=== PATIENT | male | born 1950 | race Asian ===

== ENCOUNTER 2018-04-19 14:03 | Inpatient (IN) | payer MEDICARE, MEDICAID ==
--- NOTE | 2018-04-19 14:53 | ED Physician Chart ---
ED Chief Complaint/HPI - Patient Information Date Seen:: 04/19/18 Time Seen:: 14:25 Chief Complaint:: Agitation History of Present Illness:: onset x 2 days of agitation and hostile behavior; no report of trauma, H/As, S/T , neck pain, cough, C/P, SIs, SOB, Abd. Pain, A/N/V/D/C, fever, chills, or urinary s/s Allergies:: Allergies Allergy/AdvReac Type Severity Reaction Status Date / Time No Known Allergies Allergy Verified 04/19/18 14:26 Vitals:: Vital Signs - 8 hr 04/19/18 14:26 Temp 98.9 F HR 72 RR 16 BP 140/86 Historian:: Patient, EMS Review:: Nurse's Note Reviewed, Old Chart Reviewed, EMS run form Reviewed ED Review of Systems - Review of Systems General/Constitutional: No fever, No chills, No weight loss, No weakness, No diaphoresis, No edema, No loss of appetite Skin: No skin lesions, No rash, No bruising Head: No headache, No light-headedness Eyes: No loss of vision, No pain, No diplopia ENT: No earache, No nasal drainage, No sore throat, No tinnitus Neck: No neck pain, No swelling, No thyromegaly, No stiffness, No mass noted Cardio Vascular: No chest pain, No palpitations, No PND, No orthopnea, No edema Pulmonary: No SOB, No cough, No sputum, No wheezing GI: No nausea, No vomiting, No diarrhea, No pain, No melena, No hematochezia, No constipation, No hematemesis G/U: No dysuria, No frequency, No hematuria, No nacturia Musculoskeletal: No bone or joint pain, No back pain, No muscle pain Endocrine: No polyuria, No polydipsia Psychiatric: Prior psych history, Depression, Anxiety, No suicidal ideation, No homicidal ideation, No auditory hallucination, No visual hallucination Hematopoietic: No bruising, No lymphadenopathy Allergic/Immuno: No urticaria, No angioedema Neurological: No syncope, No focal symptoms, No weakness, No paresthesia, No headache, No seizure, No dizziness, No confusion, No vertigo ED Past Medical History - Past Medical History Obtainable: Yes Past Medical History: HTN, Dyslipidemia Family History: HTN Social History: Non Smoker, No Alcohol, No Drug Use, Single, Care Facility Surgical History: None Psychiatricy History: Bipolar Medication: Reviewed Family Medical History - Family Member Mother History Unknown: Yes ED Physical Exam - Physical Examination General/Constitutional: Awake, Well-developed, well-nourished, Alert, No distress, GCS 15, Non-toxic appearing, Ambulatory Head: Atraumatic Eyes: Lids, conjuctiva normal, PERRL, EOMI Skin: Nl inspection, No rash, No skin lesions, No ecchymosis, Well hydrated, No lymphadenopathy ENMT: External ears, nose nl, TM canals nl, Nasal exam nl, Lips, teeth, gums nl , Oropharynx nl, Tonsils nl Neck: Nontender, Full ROM w/o pain, No JVD, No nuchal rigidity, No bruit, No mass, No stridor Respiratory: Nl effort/Exclusion, Clear to Auscultation, No Wheeze/Rhonchi/Rales Cardio Vascular: RRR, No murmur, gallop, rubs, NL S1 S2, Carotid/Femoral/Distal pulses equal bilaterally GI: No tenderness/rebounding/guarding, No organomegaly, No hernia, Normal BS's, Nondistended, No mass/bruits, No McBurney tenderness : No CVA tenderness Extremities: No tenderness or effusion, Full ROM, normal strength in all extremities, No edema, Normal digits & nails Neuro/Psych: Alert/oriented, DTR's symmetric, Normal sensory exam, Normal motor strength, Judgement/insight normal, Mood normal, Normal gait, No focal deficits Other Neuro/Psych comments:: + Psychomotor Agitation; no SIs; Mood/Affect: Labile Misc: Normal back, No paraspinal tenderness ED Labs/Radiology/EKG Results - Lab Results Comments:: Reviewed - EKG Interpretations EKG Time:: 14:57 Rate & Rhythm: 69; NSR Comments:: non-specific st-t changes ED Septic Shock - . Is Septic Shock (SBP<90, OR Lactate>4 mmol\L) present?: No - <6hrs of presentation: Vital Signs: Vital Signs - 8 hr 04/19/18 14:26 Temp 98.9 F HR 72 RR 16 BP 140/86 ED Reassessment (Disposition) - Reassessment Reassessment Condition:: Improved - Diagnosis Diagnosis:: Agitation; Psychosis; Medical Clearance; Hyperglycemia; DM; Bipolar Disorder - Aftercare/Follow up Instructions Aftercare/Follow-Up Instructions:: Counseled pt regarding lab results/diagnosis & need follow up, Counseled pt & family regarding lab results/diagnosis & need follow up - Patient Disposition Discharge/Transfer:: Acute Care w/in this hosp Admitted to:: [facility] Condition at Disposition:: Stable, Improved
[2018-04-19 15:45] LABS: % EOSINOPHILS 8.4 % (0.0-5.0); % LYMPHOCYTES 19.3 % (20.0-50.0); % MONOCYTES 7.5 % (2.0-10.0); % NEUTROPHILS 63.8 % (40.0-80.0); BASOPHILE ABSOLUTE 0.1 Th/cumm (0-0.2); EOSINOPHILE ABSOLUTE 0.4 Th/cmm (0.1-0.4); HEMATOCRIT 42.8 % (41.0-60); HEMOGLOBIN 14.2 gm/dL (12-16); MEAN CELL VOLUME 87.4 fl (80-99); MEAN CORPUSCULAR HEMOGLOBIN 28.9 pg (27.0-31.0); MEAN CORPUSCULAR HGB CONC 33.1 pg (28.0-36.0); MEAN PLATELET VOLUME 6.6 fl; MONOCYTE ABSOLUTE 0.4 Th/cmm (0.3-1.0); NEUTROPHILE ABSOLUTE 3.2 Th/cmm (1.8-8.0); PLATELET COUNT 253 Th/cmm (150-400); RED CELL DISTRIBUTION WIDTH 12.3 % (11.5-20.0); WHITE BLOOD COUNT 5.1 Th/cmm (4.8-10.8)
[2018-04-19 16:05] LABS: ACETAMINOPHEN < 10.0 ug/mL (10.0-30.0); ALB/GLOB RATIO 1.3 (1.0-1.8); ALBUMIN 4.4 gm/dL (4.2-5.5); ALKALINE PHOSPHATASE 57 U/L (34-104); ANION GAP 10.7 (7.0-16.0); BILIRUBIN,TOTAL 0.4 mg/dL (0.3-1.0); BUN - UREA NITROGEN 18 mg/dL (7-25); CALCIUM SERUM 9.9 mg/dL (8.6-10.3); CARBON DIOXIDE 28.5 mEq/L (21.0-31.0); CHLORIDE 100 mEq/L (98-107); CHOLESTEROL 207 mg/dL (<200); GFR AFRICAN-AMERICAN > 60.0 ml/min (>90); GFR NON AFRICAN-AMERICAN > 60.0 ml/min; GLUCOSE 225 mg/dL (70-105); HDL -HIGH DENSITY LIPOPROTEIN 46 mg/dL (23-92); POTASSIUM SERUM 4.2 mEq/L (3.5-5.1); SGOT 9 U/L (13-39); SGPT/ALT 3 U/L (7-52); SODIUM SERUM 135 mEq/L (136-145); TOTAL PROTEIN,SERUM 7.8 gm/dL (6.0-8.3); TRIGLYCERIDES 147 mg/dL (<150)
[2018-04-19 16:08] LABS: SALICYLATES (ASPIRIN) < 25.0 mg/L (30.0-100.0)
[2018-04-19 16:41] LABS: URINE SOURCE CLEAN C
[2018-04-19 16:46] LABS: URINE BILIRUBIN NEGATIVE (NEGATIVE); URINE BLOOD NEGATIVE (NEGATIVE); URINE GLUCOSE (UA) >=1000 mg/dL (NEGATIVE); URINE KETONE TRACE mg/dL (NEGATIVE); URINE LEUKOCYTE ESTERASE NEGATIVE (NEGATIVE); URINE MICROSCOPIC INDICATED? YES; URINE NITRATE NEGATIVE (NEGATIVE); URINE PH 6.5 (4.6 - 8.0); URINE PROTEIN TRACE mg/dL (NEGATIVE); URINE UROBILINOGEN 0.2 E.U./dL (0.2 - 1.0)
[2018-04-19 16:56] LABS: URINE CLARITY CLEAR (CLEAR); URINE COLOR YELLOW
[2018-04-19 16:57] LABS: URINE BACTERIA OCCASIONAL /hpf (NONE SEEN); URINE EPITHELIAL CELLS FEW /lpf (FEW); URINE RBC NONE SEEN /hpf (0-5); URINE WBC 0-2 /hpf (0-5)
[2018-04-19 17:06] LABS: AMPHETAMINE URINE NEGATIVE (NEGATIVE); BARBITURATES URINE NEGATIVE (NEGATIVE); BENZODIAZEPINES QUAL URINE NEGATIVE (NEGATIVE); CANNABINOID THC NEGATIVE (NEGATIVE); COCAINE METABOLITE QUAL URINE NEGATIVE (NEGATIVE); METHADONE URINE NEGATIVE (NEGATIVE); METHAMPHETAMINES QUAL URINE NEGATIVE (NEGATIVE); OPIATES (MORPHINE) QUAL. URINE NEGATIVE (NEGATIVE); PHENCYCLIDINE (PCP) URINE NEGATIVE (NEGATIVE); TRICYCLICS (TCA) QUAL. URINE NEGATIVE (NEGATIVE)
[2018-04-19 17:46] VITALS: BP 169/85
[2018-04-19 19:30] LABS: CHOLESTEROL 208 mg/dL (<200); HDL -HIGH DENSITY LIPOPROTEIN 46 mg/dL (23-92); TRIGLYCERIDES 147 mg/dL (<150)
[2018-04-19] MEDS ORDERED: Magnesium Hydroxide (MOM) 30 mL UDC PO PRN (19:47)
[2018-04-19] MEDS ORDERED: Maalox 30 mL Cup PO PRN (19:47)
[2018-04-19] MEDS ORDERED: Non-Formulary Item 1 EA (Glucagon,Human Recombinant [Glucagon Emergency Kit] 1 MG) IJ PRN (19:51)
[2018-04-19] MEDS ORDERED: Fleet Enema 135 mL RC PRN (19:51)
[2018-04-19] MEDS ORDERED: INSULIN HUMAN REGULAR 100 UNITS/ML UNIT SUBQ SCH (21:00)
[2018-04-19] MEDS: Guaifenesin DM 10 ML UDC PO PRN (21:54)
[2018-04-19] MEDS: Oxybutynin Chloride 5 mg ER Tab PO SCH (22:30)
[2018-04-20] MEDS: INSULIN ASPART SLIDING SCALE 100 UNITS/ML UNIT SUBQ SCH ×4 (06:33→21:20)
[2018-04-20] MEDS ORDERED: Magnesium Hydroxide (MOM) 30 mL UDC PO PRN (08:10)
[2018-04-20] MEDS ORDERED: Non-Formulary Item 1 EA (Acetaminophen [Pain Reliever] 650 MG) PO PRN ×2 (08:10)
[2018-04-20] MEDS ORDERED: RASAGILINE MESYLATE 1 MG PO SCH (09:00)
[2018-04-20] MEDS ORDERED: PIMAVANSERIN TARTRATE 17 MG PO SCH (09:00)
[2018-04-20] MEDS ORDERED: DORZOLAMIDE HCL EACH EYE SCH (09:00)
[2018-04-20] MEDS ORDERED: Non-Formulary Item 1 EA (Potassium Chloride [Potassium Chloride] 1 CAP) PO SCH (09:00)
[2018-04-20] MEDS: Multivitamin Tab PO SCH (09:16)
[2018-04-20] MEDS: Guaifenesin DM 10 ML UDC PO PRN ×2 (09:30→17:55)
[2018-04-20] MEDS: Non-Formulary Item 1 EA (Linaclotide [Linzess] 145 MCG) PO SCH ×2 (09:51→17:10)
--- NOTE | 2018-04-20 10:49 | History & Physical ---
ADMIT DATE: HISTORY OF PRESENT ILLNESS: The patient came with history of severe agitation, was admitted for [facility]. The patient has no history of shortness of breath, chest pain, etc. SYSTEM REVIEW: Otherwise negative. PAST MEDICAL HISTORY: The patient had a past history of hypertension, hyperlipidemia and psychiatric history of bipolar disorder. PHYSICAL EXAMINATION: GENERAL: The patient is well-developed and well-nourished, very agitated. HEAD: Normal. ENT: Normal. NECK: Supple, nontender. LUNGS: Clear. CARDIOVASCULAR SYSTEM: S1 and S2 heard. ABDOMEN: Soft. Bowel sounds are heard. CENTRAL NERVOUS SYSTEM: The patient has psychomotor agitation. LABORATORY DATA AND DIAGNOSTIC STUDIES: EKG was normal sinus rhythm. Labs are normal. DIAGNOSES: Severe agitation, psychosis, hyperglycemia, history of diabetes, history of bipolar disorder, history of hypertension was made. PLAN: I will follow along with Dr. Mccall and I will manage medical condition and I will follow along with him. JOB# [id number]
[2018-04-20] MEDS: Oxybutynin Chloride 5 mg ER Tab PO SCH (21:18)
--- NOTE | 2018-04-21 00:03 | Psychiatric Evaluation ---
DATE OF SERVICE: PSYCHIATRIC INITIAL EVALUATION AND MENTAL STATUS EXAM PATIENT'S AGE: 67-year-old. SEX: Male. PHYSICIAN: Dr. Lees. CHIEF COMPLAINT: Agitation and irritability. HISTORY OF PRESENT ILLNESS: The patient is a 67-year-old male who was admitted to the hospital because of increased confusion and paranoia and agitated. The patient has been pacing up and down the unit in [facility] and has not been able to follow any directions. The patient also has been easily agitated. Also, has been having severe mood swings. The patient also has been restless and has been actively responding to stimuli. During interview, the patient seems to be preoccupied. He was not able to answer most of my questions coherently and the patient seems to be forgetful. PAST PSYCHIATRIC HISTORY: The patient has history of dementia according to the hold. PAST MEDICAL HISTORY: The patient has hypertension, diabetes mellitus, and Parkinson's disease. He has history of depression and dyslipidemia. SOCIAL HISTORY: The patient lives in [facility]. No known alcohol or drug use. ALLERGIES: No known allergies. MENTAL STATUS EXAMINATION: The patient appears slightly older than his stated age. Anxious. Confused. Preoccupied. Thought processes are with poverty of speech. The patient did not answer questions regarding hallucinations or delusions, but he was rambling and preoccupied and actively responding. The patient did not answer question regarding suicide or homicide. The patient is alert and oriented to the situation, but not to the place or person. Impaired immediate and recent memory, but intact remote memories. Poor insight and poor judgment. ASSESSMENT: PRIMARY DIAGNOSIS: Unspecified psychosis. MEDICAL DIAGNOSES: Hypertension, diabetes mellitus, and Parkinson's disease. SECONDARY DIAGNOSIS: Dementia, moderate. TREATMENT PLAN: We will monitor the patient's condition closely. We will start individual as well as milieu psychotherapy. We will continue Depakote and Remeron and will adjust the dose. ESTIMATED LENGTH OF STAY: 5-7 days. THE PATIENT'S STRENGTHS AND WEAKNESSES: The patient's strength is not clear at this time. Weaknesses are poor impulse control and his confusion and agitation. AFTER DISCHARGE PLAN: The patient will return to [facility] and outpatient treatment and followup will continue there. CRITERIA FOR DISCHARGE: The patient will not be psychotic and will have better impulse control and stabilize psychotropic medications. JOB# [id number]
[2018-04-21] MEDS: INSULIN ASPART SLIDING SCALE 100 UNITS/ML UNIT SUBQ SCH ×4 (06:37→21:01)
[2018-04-21] MEDS: Multivitamin Tab PO SCH (09:03)
[2018-04-21] MEDS: Potassium Chloride 10 mEq ER Tab PO SCH (09:04)
[2018-04-21] MEDS: Guaifenesin DM 10 ML UDC PO PRN (09:38)
--- NOTE | 2018-04-21 14:12 | Internal Medicine Prog Note ---
Internal Medicine Subjective - Subjective Patient seen and examined:: chart reviewed Patient is:: verbal Patient Complaints of:: SOB Per staff patient has:: no adverse event, tolerating meds Internal Medicine Objective - Results Result Diagrams: 04/19/18 15:15 04/19/18 15:15 Recent Labs: Laboratory Last Values WBC 5.1 Th/cmm (4.8-10.8) 04/19/18 15:15 RBC 4.90 Mil/cmm (3.80-5.80) 04/19/18 15:15 Hgb 14.2 gm/dL (12-16) 04/19/18 15:15 Hct 42.8 % (41.0-60) 04/19/18 15:15 MCV 87.4 fl (80-99) 04/19/18 15:15 MCH 28.9 pg (27.0-31.0) 04/19/18 15:15 MCHC Differential 33.1 pg (28.0-36.0) 04/19/18 15:15 RDW 12.3 % (11.5-20.0) 04/19/18 15:15 Plt Count 253 Th/cmm (150-400) 04/19/18 15:15 MPV 6.6 fl 04/19/18 15:15 Neutrophils % 63.8 % (40.0-80.0) 04/19/18 15:15 Lymphocytes % 19.3 % (20.0-50.0) L 04/19/18 15:15 Monocytes % 7.5 % (2.0-10.0) 04/19/18 15:15 Eosinophils % 8.4 % (0.0-5.0) H 04/19/18 15:15 Basophils % 1.0 % (0.0-2.0) 04/19/18 15:15 Sodium 135 mEq/L (136-145) L 04/19/18 15:15 Potassium 4.2 mEq/L (3.5-5.1) 04/19/18 15:15 Chloride 100 mEq/L (98-107) 04/19/18 15:15 Carbon Dioxide 28.5 mEq/L (21.0-31.0) 04/19/18 15:15 Anion Gap 10.7 (7.0-16.0) 04/19/18 15:15 BUN 18 mg/dL (7-25) 04/19/18 15:15 Creatinine 1.0 mg/dL (0.7-1.3) 04/19/18 15:15 Est GFR ( Amer) > 60.0 ml/min (>90) 04/19/18 15:15 Est GFR (Non-Af Amer) > 60.0 ml/min 04/19/18 15:15 BUN/Creatinine Ratio 18.0 04/19/18 15:15 Glucose 225 mg/dL (70-105) H 04/19/18 15:15 POC Glucose 275 MG/DL (70 - 105) H 04/21/18 11:56 Calcium 9.9 mg/dL (8.6-10.3) 04/19/18 15:15 Total Bilirubin 0.4 mg/dL (0.3-1.0) 04/19/18 15:15 AST 9 U/L (13-39) L 04/19/18 15:15 ALT 3 U/L (7-52) L 04/19/18 15:15 Alkaline Phosphatase 57 U/L (34-104) 04/19/18 15:15 Troponin I < 0.01 ng/mL (0.01-0.05) L 04/19/18 15:15 Total Protein 7.8 gm/dL (6.0-8.3) 04/19/18 15:15 Albumin 4.4 gm/dL (4.2-5.5) 04/19/18 15:15 Globulin 3.4 gm/dL 04/19/18 15:15 Albumin/Globulin Ratio 1.3 (1.0-1.8) 04/19/18 15:15 Triglycerides 147 mg/dL (<150) 04/19/18 15:15 Cholesterol 208 mg/dL (<200) H 04/19/18 15:15 LDL Cholesterol Direct 141 mg/dL (75-193) 04/19/18 15:15 HDL Cholesterol 46 mg/dL (23-92) 04/19/18 15:15 TSH 1.25 uIU/ml (0.34-5.60) 04/19/18 15:15 Urine Source CLEAN C 04/19/18 15:28 Urine Color YELLOW 04/19/18 15:28 Urine Clarity CLEAR (CLEAR) 04/19/18 15:28 Urine pH 6.5 (4.6 - 8.0) 04/19/18 15: Ur Specific [place] 1.020 (1.005-1.030) 04/19/18 15: Urine Protein TRACE mg/dL (NEGATIVE) 04/19/18 15: Urine Glucose (UA) >=1000 mg/dL (NEGATIVE) H 04/19/18 15: Urine Ketones TRACE mg/dL (NEGATIVE) 04/19/18 15: Urine Blood NEGATIVE (NEGATIVE) 04/19/18 15: Urine Nitrate NEGATIVE (NEGATIVE) 04/19/18 15: Urine Bilirubin NEGATIVE (NEGATIVE) 04/19/18 15: Urine Urobilinogen 0.2 E.U./dL (0.2 - 1.0) 04/19/18 15: Ur Leukocyte Esterase NEGATIVE (NEGATIVE) 04/19/18 15: Urine RBC NONE SEEN /hpf (0-5) 04/19/18: Urine WBC 0-2 /hpf (0-5) 04/19/18 15: Ur Epithelial Cells FEW /lpf (FEW) 04/19/18 15: Urine Bacteria OCCASIONAL /hpf (NONE SEEN) 04/19/18 15: Salicylates < 25.0 mg/L (30.0-100.0) L 04/19/18 15:15 Urine Opiates Screen NEGATIVE (NEGATIVE) 04/19/18 15: Urine Methadone Screen NEGATIVE (NEGATIVE) 04/19/18 15: Acetaminophen < 10.0 ug/mL (10.0-30.0) L 04/19/18 15: Ur Barbiturates Screen NEGATIVE (NEGATIVE) 04/19/18 15: Valproic Acid 59.6 ug/mL (50.0-100.0) 04/19/18 15: Ur Tricyclics Screen NEGATIVE (NEGATIVE) 04/19/18 15: Ur Phencyclidine Scrn NEGATIVE (NEGATIVE) 04/19/18 15: Amphetamines Screen NEGATIVE (NEGATIVE) 04/19/18 15:28 U Methamphetamines Scrn NEGATIVE (NEGATIVE) 04/19/18 15:28 U Benzodiazepines Scrn NEGATIVE (NEGATIVE) 04/19/18 15: U Cocaine Metab Screen NEGATIVE (NEGATIVE) 04/19/18 15:28 U Cannabinoids Screen NEGATIVE (NEGATIVE) 04/19/18 15:28 Ethyl Alcohol < 10 mg/dL (0-10) 04/19/18 15:15 - Physical Exam Vitals and I&O: Vital Signs Temp 97.9 F 04/21/18 06:53 Pulse 75 04/21/18 09:05 Resp 16 04/21/18 10:28 BP 156/80 04/21/18 09:05 Pulse Ox 97 04/21/18 06:53 Intake & Output 04/20/18 04/21/18 04/21/18 18:59 06:59 18:59 Intake Total 1720 120 Balance 1720 120 Intake: Oral 1720 120 Other: # Voids 4 3 # Bowel Movements 1 Active Medications: Current Medications Acetaminophen (Tylenol) 650 mg PO Q4HR PRN PRN Reason: Mild Pain / Temp above 100 Stop: 06/18/18 19:46 Last Admin: 04/20/18 17:55 Dose: 650 mg Al Hydrox/Mg Hydrox/Simethicone (Maalox) 30 ml PO Q4HR PRN PRN Reason: GI DISTRESS Stop: 06/18/18 19:46 Bisacodyl (Dulcolax 10 Mg Supp) 10 mg RC DAILY PRN PRN Reason: Constipation Stop: 06/18/18 19:50 Brimonidine Tartrate (Alphagan 0.15% [facility]) 1 drop EACH EYE TID [facility] Stop: 06/18/18 20:59 Last Admin: 04/21/18 09:39 Dose: 1 drop Calcium Carbonate (Tums) 500 mg PO Q6H PRN PRN Reason: Indigestion Stop: 06/18/18 19:50 Carbidopa/Levodopa (Sinemet 25mg-100 Mg) 1 tab PO HS [facility] Stop: 06/18/18 20:59 Last Admin: 04/20/18 21:19 Dose: 1 tab Carbidopa/Levodopa (Sinemet 25mg-100 Mg) 2 tab PO TIDWM [facility] Stop: 06/19/18 07:59 Last Admin: 04/21/18 12:39 Dose: 2 tab Carvedilol (Coreg) 12.5 mg PO DAILY [facility] Stop: 06/19/18 08:59 Last Admin: 04/21/18 09:04 Dose: 12.5 mg Clopidogrel Bisulfate (Plavix) 75 mg PO DAILY [facility] Stop: 06/19/18 08:59 Last Admin: 04/21/18 09:02 Dose: 75 mg Dextrose (Glutose 40%) 37.5 gm PO PRN PRN PRN Reason: bs<70 Stop: 06/18/18 19:50 Divalproex Sodium (Depakote Dr) 500 mg PO BID [facility]; Protocol Stop: 06/19/18 08:59 Last Admin: 04/21/18 09:02 Dose: 500 mg Docusate Sodium (Colace) 250 mg PO BID [facility] Stop: 06/19/18 08:59 Last Admin: 04/21/18 09:02 Dose: 250 mg Dorzolamide HCl (Trusopt 2% Oph Soln) 1 drop EACH EYE BID [facility] Stop: 06/19/18 16:59 Last Admin: 04/21/18 09:38 Dose: 1 drop Entacapone (Comtan) 200 mg PO TID [facility] Stop: 06/18/18 20:59 Last Admin: 04/21/18 09:02 Dose: 200 mg Guaifenesin/Dextromethorphan (Robitussin Dm) 10 ml PO Q6HR PRN PRN Reason: Cough Stop: 06/18/18 20:11 Last Admin: 04/21/18 09:38 Dose: 10 ml Insulin Aspart (Novolog Insulin Sliding Scale) 0 units SUBQ ACHS [facility]; Protocol Stop: 06/19/18 07:29 Last Admin: 04/21/18 11:58 Dose: 6 units Isosorbide Dinitrate (Isordil) 5 mg PO DAILY [facility] Stop: 06/19/18 08:59 Last Admin: 04/21/18 09:05 Dose: 5 mg Lorazepam (Ativan) 0.5 mg PO Q4HR PRN; Protocol PRN Reason: Anxiety Stop: 05/19/18 19:46 Magnesium Hydroxide (Milk Of Magnesia) 30 ml PO HS PRN PRN Reason: Constipation Magnesium Oxide (Mag-Oxide) 400 mg PO BID [facility] Stop: 06/19/18 08:59 Last Admin: 04/21/18 09:03 Dose: 400 mg Mirtazapine (Remeron) 7.5 mg PO HS [facility] Stop: 06/18/18 22:14 Last Admin: 04/20/18 21:17 Dose: 7.5 mg Miscellaneous (Linaclotide [Linzess]) 145 mcg PO BID [facility] Stop: 06/19/18 08:59 Last Admin: 04/20/18 17:10 Dose: Not Given Miscellaneous (Pimavanserin Tartrate [Nuplazid]) 17 mg PO DAILY [facility] Stop: 06/19/18 08:59 Last Admin: 04/20/18 09:51 Dose: Not Given Miscellaneous (Rasagiline Mesylate [Azilect]) 1 mg PO DAILY [facility] Stop: 06/19/18 08:59 Last Admin: 04/20/18 09:51 Dose: Not Given Multivitamins/Vitamin C (Theragran) 1 tab PO DAILY [facility] Stop: 06/19/18 08:59 Last Admin: 04/21/18 09:03 Dose: 1 tab Mupirocin (Bactroban Oint) 1 appl NS BID [facility] Stop: 04/26/18 09:01 Oxybutynin Chloride (Ditropan Xl) 10 mg PO HS [facility] Stop: 06/18/18 22:14 Last Admin: 04/20/18 21:18 Dose: 10 mg Pioglitazone HCl (Actos) 15 mg PO DAILY [facility] Stop: 06/19/18 08:59 Last Admin: 04/21/18 09:02 Dose: 15 mg Potassium Chloride (Klor-Con) 10 meq PO DAILY [facility] Stop: 06/20/18 08:59 Last Admin: 04/21/18 09:04 Dose: 10 meq Quetiapine Fumarate (Seroquel) 12.5 mg PO HS [facility]; Protocol Stop: 06/19/18 20:59 Last Admin: 04/20/18 21:14 Dose: 12.5 mg Sodium Phosphate (Fleet Enema) 135 ml RC DAILY PRN PRN Reason: Constipation Stop: 06/18/18 19:50 Tramadol HCl (Ultram) 50 mg PO HS PRN PRN Reason: Pain (Severe) Stop: 06/18/18 19:50 Zolpidem Tartrate (Ambien) 5 mg PO HS PRN PRN Reason: Insomnia Stop: 06/18/18 19:46 Last Admin: 04/19/18 21:53 Dose: 5 mg General: alert, other (anxious) HEENT: NC/AT Neck: Supple Lungs: CTAB Cardiovascular: Normal S1, Normal S2 Abdomen: non-tender Extremities: clear, edema Neurological: no change Internal Medicine Assmt/Plan - Assessment Assessment: severe agitation psychosis hyperglycemia h/o dm h/o bipolar disease h/o htn - Plan Plan: as per psych will monitor Nutritional Asmnt/Malnutr-PDOC - Dietary Evaluation Malnutrition Findings (Please click <Entered> for more info): Nutritional Asmnt/Malnutrition Start: 04/20/18 15: 00 Text: Status: Complete Freq: Protocol: Document 04/20/18 15:00 TIM (Rec: 04/20/18 15:32 TIM CAST) Nutritional Asmnt/Malnutrition Patient General Information Nutritional Screening High Risk Diagnosis psychosis Pertinent Medical Hx/Surgical Hx HTN, hyperlipidemia, bipolar disorder, DM Subjective Information Glucose 225 at admission noted . Pt sitting in hallway at time of visit. Pt's alert, but appears confused. Pt states he has no diet/meal preferences. Per EMR, pt finished 50% of dinner last night after admission. Pt does not appear ready for diabetic education. Current Diet Order/ Nutrition Support CCHO 60 gm Pertinent Medications maalox, dulcolax, tums, dextrose, colace, novolog, MOM , mag-oxide, remeron, theragran, actos, klor-con, seroquel Pertinent Labs 04/20: POC 157-243 04/19: POC 239, glucose 225, POC 239, cholesterol 207-208, Na 135 Nutritional Hx/Data Height 1.73 m Height (Calculated Centimeters) 172.7 Current Weight (lbs) 72.575 kg Weight (Calculated Kilograms) 72.6 Weight (Calculated Grams) 93079.8 [place] Body Weight 154 lb Body Mass Index (BMI) 24.3 Weight Status Approriate GI Symptoms GI Symptoms None Last BM none noted Difficult in: None Food Allergies No Skin Integrity/Comment: dryness, duc 20 Estimated Nutritional Goals BEE in Kcals: Using Current wt Calories/Kcals/Kg 25-30 Kcals Calculated [id number] Protein: Using Current wt Protein g/k.0 Protein Calculated 73 g Fluid: ml 4399-5201 (1 ml/kcal) Nutritional Problem 1. Problem Problem Altered nutrition related lab values Etiology hyperglycemia, endocrine dysfunction Signs/Symptoms: glucose 225, POC 157-243 Malnutrition Alert Is there a minimum of two criteria No selected? Query Text:Check all the applicable criteria. A minimum of two criteria are recommended for diagnosis of either severe or non-severe malnutrition. Malnutrition Related to Morbid Obesity Malnutrition related to morbid obesity No Intervention/Recommendation Comments 1. Continue with [facility] 60 gm diet as ordered. Will attempt to provide education at follow -up visit 2. Monitor PO intake, wt, labs and skin integrity 3. F/U as moderate risk in 3-5 days, 04/23-04/25 Expected Outcomes/Goals Expected Outcomes/Goals 1. PO intake to meet at least 75% of all meals 2. Wt stability, skin to remain intact, labs to approach normal limits Reviewed by Leny Shi RD
[2018-04-21] MEDS: Oxybutynin Chloride 5 mg ER Tab PO SCH (21:01)
[2018-04-22] MEDS: INSULIN ASPART SLIDING SCALE 100 UNITS/ML UNIT SUBQ SCH ×4 (06:35→20:52)
[2018-04-22] MEDS: Multivitamin Tab PO SCH (08:10)
[2018-04-22] MEDS: Potassium Chloride 10 mEq ER Tab PO SCH (08:19)
[2018-04-22] MEDS: Guaifenesin DM 10 ML UDC PO PRN (11:52)
--- NOTE | 2018-04-22 16:18 | Progress Notes ---
DATE: 04/22/2018 SUBJECTIVE: The patient was seen in his room. The patient is awake and alert, but forgetful, episodes of agitation appears to be guarded and easily gets frustrated. Otherwise, the patient appears to be in no acute distress. OBJECTIVE: VITAL SIGNS: Temperature 98.5, heart rate 73, blood pressure 151/82, respirations 20, and 98% on room air. HEENT: Head is atraumatic and normocephalic. Eyes: Bilateral conjunctivae are clear. Bilateral pupils equal, round, and reactive. NECK: Supple. No JVD. CARDIOVASCULAR: S1 and S2, without murmur. PULMONARY: Clear to auscultation. GASTROINTESTINAL: Soft and nontender without guarding. Positive bowel sounds. MUSCULOSKELETAL: No clubbing. No cyanosis noted. ASSESSMENT: 1. Psychosis. 2. Glaucoma. 3. Parkinson's disease. 4. Hypertension. 5. Coronary artery disease. 6. Diabetes. 7. Overactive bladder. 8. Osteoarthritis. PLAN: We will keep the patient inpatient to the Psychiatric Unit. We will follow up with the psychiatrist to monitor the patient's condition and behavior. Treatment plans were discussed with the patient's nurse. Treatment plans were discussed with Dr. Beard. JOB# [id number]
--- NOTE | 2018-04-22 19:11 | Progress Notes ---
DATE: 04/21/2018 SUBJECTIVE: Chart reviewed and the patient interviewed. Also, discussed the patient's condition with the staff and reviewed records and labs. The patient is still anxious and restless and he is still easily agitated. The patient also wants to go to [facility] where he came from, but at the same time, he is minimizing the fact that he was agitated and irritable there. I informed the patient that they will take him back when he is calmer. At the same time, the patient is restless and he is still in irritable mood and very anxious and need redirections. ASSESSMENT: The patient is still agitated. TREATMENT PLAN: Continue monitoring his behavior and his condition and continue adjusting psychotropic medications and follow up. [facility]# [id number]
[2018-04-22] MEDS: Oxybutynin Chloride 5 mg ER Tab PO SCH (20:51)
--- NOTE | 2018-04-23 03:31 | Progress Notes ---
DATE: 04/22/[address] Lees. IDENTIFYING DATA: A 67-year-old male brought in here for increased confusion, paranoia and agitation. Today on [id number] evaluation, the patient is in his room, refusing to be interviewed, when attempting to validate his emotions become more irritable and easily agitated. MEDICATIONS: Reviewed and include calcium, carbidopa/levodopa, Coreg, Plavix, Depakote 500 p.o. b.i.d., mirtazapine 7.5 mg at nighttime. ASSESSMENT AND PLAN: The patient is a 67-year-old male with a history of unspecified mood disorder, ____, disengaged in the interview, unable to engage in linear conversation. We will continue monitoring and evaluating, target the patient's ongoing severe symptoms. JOB# [id number]
[2018-04-23] MEDS: INSULIN ASPART SLIDING SCALE 100 UNITS/ML UNIT SUBQ SCH ×4 (06:34→20:54)
[2018-04-23] MEDS: Multivitamin Tab PO SCH (09:58)
[2018-04-23] MEDS: Potassium Chloride 10 mEq ER Tab PO SCH (09:59)
--- NOTE | 2018-04-23 11:24 | Internal Medicine Prog Note ---
Internal Medicine Subjective - Subjective Patient seen and examined:: chart reviewed Patient is:: verbal, other (confused, irritable ) Patient Complaints of:: SOB Per staff patient has:: no adverse event, tolerating meds Internal Medicine Objective - Results Result Diagrams: 04/19/18 15:15 04/19/18 15:15 Recent Labs: Laboratory Last Values WBC 5.1 Th/cmm (4.8-10.8) 04/19/18 15:15 RBC 4.90 Mil/cmm (3.80-5.80) 04/19/18 15:15 Hgb 14.2 gm/dL (12-16) 04/19/18 15:15 Hct 42.8 % (41.0-60) 04/19/18 15:15 MCV 87.4 fl (80-99) 04/19/18 15:15 MCH 28.9 pg (27.0-31.0) 04/19/18 15:15 MCHC Differential 33.1 pg (28.0-36.0) 04/19/18 15:15 RDW 12.3 % (11.5-20.0) 04/19/18 15:15 Plt Count 253 Th/cmm (150-400) 04/19/18 15:15 MPV 6.6 fl 04/19/18 15:15 Neutrophils % 63.8 % (40.0-80.0) 04/19/18 15:15 Lymphocytes % 19.3 % (20.0-50.0) L 04/19/18 15:15 Monocytes % 7.5 % (2.0-10.0) 04/19/18 15:15 Eosinophils % 8.4 % (0.0-5.0) H 04/19/18 15:15 Basophils % 1.0 % (0.0-2.0) 04/19/18 15:15 Sodium 135 mEq/L (136-145) L 04/19/18 15:15 Potassium 4.2 mEq/L (3.5-5.1) 04/19/18 15:15 Chloride 100 mEq/L (98-107) 04/19/18 15:15 Carbon Dioxide 28.5 mEq/L (21.0-31.0) 04/19/18 15:15 Anion Gap 10.7 (7.0-16.0) 04/19/18 15:15 BUN 18 mg/dL (7-25) 04/19/18 15:15 Creatinine 1.0 mg/dL (0.7-1.3) 04/19/18 15:15 Est GFR ( Amer) > 60.0 ml/min (>90) 04/19/18 15:15 Est GFR (Non-Af Amer) > 60.0 ml/min 04/19/18 15:15 BUN/Creatinine Ratio 18.0 04/19/18 15:15 Glucose 225 mg/dL (70-105) H 04/19/18 15:15 POC Glucose 120 MG/DL (70 - 105) H 04/23/18 05:58 Calcium 9.9 mg/dL (8.6-10.3) 04/19/18 15:15 Total Bilirubin 0.4 mg/dL (0.3-1.0) 04/19/18 15:15 AST 9 U/L (13-39) L 04/19/18 15:15 ALT 3 U/L (7-52) L 04/19/18 15:15 Alkaline Phosphatase 57 U/L (34-104) 04/19/18 15:15 Troponin I < 0.01 ng/mL (0.01-0.05) L 04/19/18 15:15 Total Protein 7.8 gm/dL (6.0-8.3) 04/19/18 15:15 Albumin 4.4 gm/dL (4.2-5.5) 04/19/18 15:15 Globulin 3.4 gm/dL 04/19/18 15:15 Albumin/Globulin Ratio 1.3 (1.0-1.8) 04/19/18 15:15 Triglycerides 147 mg/dL (<150) 04/19/18 15:15 Cholesterol 208 mg/dL (<200) H 04/19/18 15:15 LDL Cholesterol Direct 141 mg/dL (75-193) 04/19/18 15:15 HDL Cholesterol 46 mg/dL (23-92) 04/19/18 15:15 TSH 1.25 uIU/ml (0.34-5.60) 04/19/18 15:15 Urine Source CLEAN C 04/19/18 15:28 Urine Color YELLOW 04/19/18 15:28 Urine Clarity CLEAR (CLEAR) 04/19/18 15:28 Urine pH 6.5 (4.6 - 8.0) 04/19/18 15:28 Ur Specific [place] 1.020 (1.005-1.030) 04/19/18 15:28 Urine Protein TRACE mg/dL (NEGATIVE) 04/19/18 15:28 Urine Glucose (UA) >=1000 mg/dL (NEGATIVE) H 04/19/18 15:28 Urine Ketones TRACE mg/dL (NEGATIVE) 04/19/18 15:28 Urine Blood NEGATIVE (NEGATIVE) 04/19/18 15:28 Urine Nitrate NEGATIVE (NEGATIVE) 04/19/18 15:28 Urine Bilirubin NEGATIVE (NEGATIVE) 04/19/18 15:28 Urine Urobilinogen 0.2 E.U./dL (0.2 - 1.0) 04/19/18 15:28 Ur Leukocyte Esterase NEGATIVE (NEGATIVE) 04/19/18 15:28 Urine RBC NONE SEEN /hpf (0-5) 04/19/18 15:28 Urine WBC 0-2 /hpf (0-5) 04/19/18 15:28 Ur Epithelial Cells FEW /lpf (FEW) 04/19/18 15:28 Urine Bacteria OCCASIONAL /hpf (NONE SEEN) 04/19/18 15:28 Salicylates < 25.0 mg/L (30.0-100.0) L 04/19/18 15:15 Urine Opiates Screen NEGATIVE (NEGATIVE) 04/19/18 15:28 Urine Methadone Screen NEGATIVE (NEGATIVE) 04/19/18 15:28 Acetaminophen < 10.0 ug/mL (10.0-30.0) L 04/19/18 15:15 Ur Barbiturates Screen NEGATIVE (NEGATIVE) 04/19/18 15:28 Valproic Acid 59.6 ug/mL (50.0-100.0) 04/19/18 15:15 Ur Tricyclics Screen NEGATIVE (NEGATIVE) 04/19/18 15:28 Ur Phencyclidine Scrn NEGATIVE (NEGATIVE) 04/19/18 15:28 Amphetamines Screen NEGATIVE (NEGATIVE) 04/19/18 15:28 U Methamphetamines Scrn NEGATIVE (NEGATIVE) 04/19/18 15:28 U Benzodiazepines Scrn NEGATIVE (NEGATIVE) 04/19/18 15:28 U Cocaine Metab Screen NEGATIVE (NEGATIVE) 04/19/18 15:28 U Cannabinoids Screen NEGATIVE (NEGATIVE) 04/19/18 15:28 Ethyl Alcohol < 10 mg/dL (0-10) 04/19/18 15:15 RPR NONREACTIVE (NONREACTIVE) 04/19/18 15:15 - Physical Exam Vitals and I&O: Vital Signs Temp 97.6 F 04/23/18 06:29 Pulse 64 04/23/18 09:55 Resp 18 04/23/18 06:29 BP 171/86 04/23/18 09:55 Pulse Ox 99 04/23/18 06:29 Intake & Output 04/22/18 04/23/18 04/23/18 18:59 06:59 18:59 Intake Total 1400 240 Balance 1400 240 Intake: Oral 1400 240 Other: # Voids 4 1 Active Medications: Current Medications Acetaminophen (Tylenol) 650 mg PO Q4HR PRN PRN Reason: Mild Pain / Temp above 100 Stop: 06/18/18 19:46 Last Admin: 04/20/18 17:55 Dose: 650 mg Al Hydrox/Mg Hydrox/Simethicone (Maalox) 30 ml PO Q4HR PRN PRN Reason: GI DISTRESS Stop: 06/18/18 19:46 Bisacodyl (Dulcolax 10 Mg Supp) 10 mg RC DAILY PRN PRN Reason: Constipation Stop: 06/18/18 19:50 Brimonidine Tartrate (Alphagan 0.15% Oph Soln) 1 drop EACH EYE TID [facility] Stop: 06/18/18 20:59 Last Admin: 04/23/18 09:52 Dose: 1 drop Calcium Carbonate (Tums) 500 mg PO Q6H PRN PRN Reason: Indigestion Stop: 06/18/18 19:50 Carbidopa/Levodopa (Sinemet 25mg-100 Mg) 1 tab PO HS [facility] Stop: 06/18/18 20:59 Last Admin: 04/22/18 20:51 Dose: 1 tab Carbidopa/Levodopa (Sinemet 25mg-100 Mg) 2 tab PO TIDWM [facility] Stop: 06/19/18 07:59 Last Admin: 04/23/18 09:00 Dose: 2 tab Carvedilol (Coreg) 12.5 mg PO DAILY [facility] Stop: 06/19/18 08:59 Last Admin: 04/23/18 09:52 Dose: 12.5 mg Clopidogrel Bisulfate (Plavix) 75 mg PO DAILY [facility] Stop: 06/19/18 08:59 Last Admin: 04/23/18 09:52 Dose: 75 mg Dextrose (Glutose 40%) 37.5 gm PO PRN PRN PRN Reason: bs<70 Stop: 06/18/18 19:50 Divalproex Sodium (Depakote Dr) 500 mg PO BID [facility]; Protocol Stop: 06/19/18 08:59 Last Admin: 04/23/18 09:52 Dose: 500 mg Docusate Sodium (Colace) 250 mg PO BID [facility] Stop: 06/19/18 08:59 Last Admin: 04/23/18 09:53 Dose: 250 mg [facility] 1 drop EACH EYE BID [facility] Stop: 06/19/18 16:59 Last Admin: 04/23/18 10:00 Dose: 1 drop Entacapone (Comtan) 200 mg PO TID [facility] Stop: 06/18/18 20:59 Last Admin: 04/23/18 09:55 Dose: 200 mg Guaifenesin/Dextromethorphan (Robitussin Dm) 10 ml PO Q6HR PRN PRN Reason: Cough Stop: 06/18/18 20:11 Last Admin: 04/22/18 11:52 Dose: 10 ml Insulin Aspart (Novolog Insulin Sliding Scale) 0 units SUBQ ACHS [facility]; Protocol Stop: 06/19/18 07:29 Last Admin: 04/23/18 06:34 Dose: Not Given Isosorbide Dinitrate (Isordil) 5 mg PO DAILY [facility] Stop: 06/19/18 08:59 Last Admin: 04/23/18 09:55 Dose: 5 mg Lorazepam (Ativan) 0.5 mg PO Q4HR PRN; Protocol PRN Reason: Anxiety Stop: 05/19/18 19:46 Magnesium Hydroxide (Milk Of Magnesia) 30 ml PO HS PRN PRN Reason: Constipation Magnesium Oxide (Mag-Oxide) 400 mg PO BID [facility] Stop: 06/19/18 08:59 Last Admin: 04/23/18 09:58 Dose: 400 mg Mirtazapine (Remeron) 7.5 mg PO HS [facility] Stop: 06/18/18 22:14 Last Admin: 04/22/18 20:48 Dose: 7.5 mg Miscellaneous (Linaclotide [Linzess]) 145 mcg PO BID [facility] Stop: 06/19/18 08:59 Last Admin: 04/20/18 17:10 Dose: Not Given Miscellaneous (Pimavanserin Tartrate [Nuplazid]) 17 mg PO DAILY [facility] Stop: 06/19/18 08:59 Last Admin: 04/20/18 09:51 Dose: Not Given Miscellaneous (Rasagiline Mesylate [Azilect]) 1 mg PO DAILY [facility] Stop: 06/19/18 08:59 Last Admin: 04/20/18 09:51 Dose: Not Given Multivitamins/Vitamin C (Theragran) 1 tab PO DAILY [facility] Stop: 06/19/18 08:59 Last Admin: 04/23/18 09:58 Dose: 1 tab Mupirocin (Bactroban Oint) 1 appl NS BID [facility] Stop: 04/26/18 09:01 Last Admin: 04/23/18 09:58 Dose: 1 appl Oxybutynin Chloride (Ditropan Xl) 10 mg PO HS [facility] Stop: 06/18/18 22:14 Last Admin: 04/22/18 20:51 Dose: 10 mg Pioglitazone HCl (Actos) 15 mg PO DAILY [facility] Stop: 06/19/18 08:59 Last Admin: 04/23/18 09:58 Dose: 15 mg Potassium Chloride (Klor-Con) 10 meq PO DAILY [facility] Stop: 06/20/18 08:59 Last Admin: 04/23/18 09:59 Dose: 10 meq Quetiapine Fumarate (Seroquel) 12.5 mg PO HS [facility]; Protocol Stop: 06/19/18 20:59 Last Admin: 04/22/18 20:50 Dose: 12.5 mg Sodium Phosphate (Fleet Enema) 135 ml RC DAILY PRN PRN Reason: Constipation Stop: 06/18/18 19:50 Tramadol HCl (Ultram) 50 mg PO HS PRN PRN Reason: Pain (Severe) Stop: 06/18/18 19:50 Zolpidem Tartrate (Ambien) 5 mg PO HS PRN PRN Reason: Insomnia Stop: 06/18/18 19:46 Last Admin: 04/19/18 21:53 Dose: 5 mg General: alert, other (anxious) HEENT: NC/AT Neck: Supple Lungs: CTAB Cardiovascular: Normal S1, Normal S2 Abdomen: non-tender Extremities: clear, edema Neurological: no change Internal Medicine Assmt/Plan - Assessment Assessment: severe agitation psychosis hyperglycemia h/o dm h/o bipolar disease h/o htn - Plan Plan: as per psych will monitor Nutritional Asmnt/Malnutr-PDOC - Dietary Evaluation Malnutrition Findings (Please click <Entered> for more info): Nutritional Asmnt/Malnutrition Start: 04/20/18 15: 00 Text: Status: Complete Freq: Protocol: Document 04/20/18 15:00 TIM (Rec: 04/20/18 15:32 [email or web address]) Nutritional Asmnt/Malnutrition Patient General Information Nutritional Screening High Risk Diagnosis psychosis Pertinent Medical Hx/Surgical Hx HTN, hyperlipidemia, bipolar disorder, DM Subjective Information Glucose 225 at admission noted . Pt sitting in hallway at time of visit. Pt's alert, but appears confused. Pt states he has no diet/meal preferences. Per EMR, pt finished 50% of dinner last night after admission. Pt does not appear ready for diabetic education. Current Diet Order/ Nutrition Support CCHO 60 gm Pertinent Medications maalox, dulcolax, tums, dextrose, colace, novolog, MOM , mag-oxide, remeron, theragran, actos, klor-con, seroquel Pertinent Labs 04/20: POC 157-243 04/19: POC 239, glucose 225, POC 239, cholesterol 207-208, Na 135 Nutritional Hx/Data Height 1.73 m Height (Calculated Centimeters) 172.7 Current Weight (lbs) 72.575 kg Weight (Calculated Kilograms) 72.6 Weight (Calculated Grams) 59342.8 [place] Body Weight 154 lb Body Mass Index (BMI) 24.3 Weight Status Approriate GI Symptoms GI Symptoms None Last BM none noted Difficult in: None Food Allergies No Skin Integrity/Comment: duc pinto 20 Estimated Nutritional Goals BEE in Kcals: Using Current wt Calories/Kcals/Kg 25-30 Kcals Calculated 7971-5799 Protein: Using Current wt Protein g/k.0 Protein Calculated 73 g Fluid: ml 6519-7024 (1 ml/kcal) Nutritional Problem 1. Problem Problem Altered nutrition related lab values Etiology hyperglycemia, endocrine dysfunction Signs/Symptoms: glucose 225, POC 157-243 Malnutrition Alert Is there a minimum of two criteria No selected? Query Text:Check all the applicable criteria. A minimum of two criteria are recommended for diagnosis of either severe or non-severe malnutrition. Malnutrition Related to Morbid Obesity Malnutrition related to morbid obesity No Intervention/Recommendation Comments 1. Continue with CCHO 60 gm diet as ordered. Will attempt to provide education at follow -up visit 2. Monitor PO intake, wt, labs and skin integrity 3. F/U as moderate risk in 3-5 days, 04/23-04/25 Expected Outcomes/Goals Expected Outcomes/Goals 1. PO intake to meet at least 75% of all meals 2. Wt stability, skin to remain intact, labs to approach normal limits Reviewed by Leny Shi RD
[2018-04-23] MEDS: Oxybutynin Chloride 5 mg ER Tab PO SCH (20:51)
--- NOTE | 2018-04-24 03:43 | Progress Notes ---
DATE: 04/23/2018 SUBJECTIVE: The patient was seen and evaluated. The patient's chart reviewed. The patient continues to be easily anxious, restless, easily agitated upon approach. MENTAL STATUS EXAMINATION: Still easily agitated, irritable, disengaged. ASSESSMENT AND PLAN: Due to the patient's active disengaged and withdrawn behavior with minimal improvement or efficacy on the current medication regimen, we will continue obtaining more collateral baseline information. [facility]# [id number]
[2018-04-24] MEDS: INSULIN ASPART SLIDING SCALE 100 UNITS/ML UNIT SUBQ SCH ×4 (06:32→22:06)
[2018-04-24] MEDS: Multivitamin Tab PO SCH (08:34)
[2018-04-24] MEDS: Potassium Chloride 10 mEq ER Tab PO SCH (08:34)
--- NOTE | 2018-04-24 10:29 | Internal Medicine Prog Note ---
Internal Medicine Subjective - Subjective Patient seen and examined:: chart reviewed Patient is:: verbal, other (confused) Patient Complaints of:: SOB Per staff patient has:: no adverse event, tolerating meds Internal Medicine Objective - Results Result Diagrams: 04/19/18 15:15 04/19/18 15:15 Recent Labs: Laboratory Last Values WBC 5.1 Th/cmm (4.8-10.8) 04/19/18 15:15 RBC 4.90 Mil/cmm (3.80-5.80) 04/19/18 15:15 Hgb 14.2 gm/dL (12-16) 04/19/18 15:15 Hct 42.8 % (41.0-60) 04/19/18 15:15 MCV 87.4 fl (80-99) 04/19/18 15:15 MCH 28.9 pg (27.0-31.0) 04/19/18 15:15 MCHC Differential 33.1 pg (28.0-36.0) 04/19/18 15:15 RDW 12.3 % (11.5-20.0) 04/19/18 15:15 Plt Count 253 Th/cmm (150-400) 04/19/18 15:15 MPV 6.6 fl 04/19/18 15:15 Neutrophils % 63.8 % (40.0-80.0) 04/19/18 15:15 Lymphocytes % 19.3 % (20.0-50.0) L 04/19/18 15:15 Monocytes % 7.5 % (2.0-10.0) 04/19/18 15:15 Eosinophils % 8.4 % (0.0-5.0) H 04/19/18 15:15 Basophils % 1.0 % (0.0-2.0) 04/19/18 15:15 Sodium 135 mEq/L (136-145) L 04/19/18 15:15 Potassium 4.2 mEq/L (3.5-5.1) 04/19/18 15:15 Chloride 100 mEq/L (98-107) 04/19/18 15:15 Carbon Dioxide 28.5 mEq/L (21.0-31.0) 04/19/18 15:15 Anion Gap 10.7 (7.0-16.0) 04/19/18 15:15 BUN 18 mg/dL (7-25) 04/19/18 15:15 Creatinine 1.0 mg/dL (0.7-1.3) 04/19/18 15:15 Est GFR ( Amer) > 60.0 ml/min (>90) 04/19/18 15:15 Est GFR (Non-Af Amer) > 60.0 ml/min 04/19/18 15:15 BUN/Creatinine Ratio 18.0 04/19/18 15:15 Glucose 225 mg/dL (70-105) H 04/19/18 15:15 POC Glucose 123 MG/DL (70 - 105) H 04/24/18 06:22 Calcium 9.9 mg/dL (8.6-10.3) 04/19/18 15:15 Total Bilirubin 0.4 mg/dL (0.3-1.0) 04/19/18 15:15 AST 9 U/L (13-39) L 04/19/18 15:15 ALT 3 U/L (7-52) L 04/19/18 15:15 Alkaline Phosphatase 57 U/L (34-104) 04/19/18 15:15 Troponin I < 0.01 ng/mL (0.01-0.05) L 04/19/18 15:15 Total Protein 7.8 gm/dL (6.0-8.3) 04/19/18 15:15 Albumin 4.4 gm/dL (4.2-5.5) 04/19/18 15:15 Globulin 3.4 gm/dL 04/19/18 15:15 Albumin/Globulin Ratio 1.3 (1.0-1.8) 04/19/18 15:15 Triglycerides 147 mg/dL (<150) 04/19/18 15:15 Cholesterol 208 mg/dL (<200) H 04/19/18 15:15 LDL Cholesterol Direct 141 mg/dL (75-193) 04/19/18 15:15 HDL Cholesterol 46 mg/dL (23-92) 04/19/18 15:15 TSH 1.25 uIU/ml (0.34-5.60) 04/19/18 15:15 Urine Source CLEAN C 04/19/18 15:28 Urine Color YELLOW 04/19/18 15:28 Urine Clarity CLEAR (CLEAR) 04/19/18 15: Urine pH 6.5 (4.6 - 8.0) 04/19/18 15:28 Ur Specific [place] 1.020 (1.005-1.030) 04/19/18 15:28 Urine Protein TRACE mg/dL (NEGATIVE) 04/19/18 15: Urine Glucose (UA) >=1000 mg/dL (NEGATIVE) H 04/19/18 15: Urine Ketones TRACE mg/dL (NEGATIVE) 04/19/18 15: Urine Blood NEGATIVE (NEGATIVE) 04/19/18 15: Urine Nitrate NEGATIVE (NEGATIVE) 04/19/18 15: Urine Bilirubin NEGATIVE (NEGATIVE) 04/19/18 15: Urine Urobilinogen 0.2 E.U./dL (0.2 - 1.0) 04/19/18 15: Ur Leukocyte Esterase NEGATIVE (NEGATIVE) 04/19/18 15: Urine RBC NONE SEEN /hpf (0-5) 04/19/18 15: Urine WBC 0-2 /hpf (0-5) 04/19/18 15: Ur Epithelial Cells FEW /lpf (FEW) 04/19/18 15: Urine Bacteria OCCASIONAL /hpf (NONE SEEN) 04/19/18 15:28 Salicylates < 25.0 mg/L (30.0-100.0) L 04/19/18 15:15 Urine Opiates Screen NEGATIVE (NEGATIVE) 04/19/18 15: Urine Methadone Screen NEGATIVE (NEGATIVE) 04/19/18 15: Acetaminophen < 10.0 ug/mL (10.0-30.0) L 04/19/18 15:15 Ur Barbiturates Screen NEGATIVE (NEGATIVE) 04/19/18 15:28 Valproic Acid 59.6 ug/mL (50.0-100.0) 04/19/18 15:15 Ur Tricyclics Screen NEGATIVE (NEGATIVE) 04/19/18 15: Ur Phencyclidine Scrn NEGATIVE (NEGATIVE) 04/19/18 15:28 Amphetamines Screen NEGATIVE (NEGATIVE) 04/19/18 15:28 U Methamphetamines Scrn NEGATIVE (NEGATIVE) 04/19/18 15:28 U Benzodiazepines Scrn NEGATIVE (NEGATIVE) 04/19/18 15:28 U Cocaine Metab Screen NEGATIVE (NEGATIVE) 04/19/18 15:28 U Cannabinoids Screen NEGATIVE (NEGATIVE) 04/19/18 15:28 Ethyl Alcohol < 10 mg/dL (0-10) 04/19/18 15:15 RPR NONREACTIVE (NONREACTIVE) 04/19/18 15:15 - Physical Exam Vitals and I&O: Vital Signs Temp 0 F 04/24/18 06:20 Pulse 70 04/24/18 08:33 Resp 18 04/23/18 20:34 BP 117/69 04/24/18 08:33 Pulse Ox 94 04/23/18 20:34 Intake & Output 04/23/18 04/24/18 04/24/18 18:59 06:59 18:59 Intake Total 240 Balance 240 Weight (lbs) 72.575 kg Intake: Oral 240 Other: # Voids 3 # Bowel Movements 1 0 Weight Source Bedscale Active Medications: Current Medications Acetaminophen (Tylenol) 650 mg PO Q4HR PRN PRN Reason: Mild Pain / Temp above 100 Stop: 06/18/18 19:46 Last Admin: 04/20/18 17:55 Dose: 650 mg Al Hydrox/Mg Hydrox/Simethicone (Maalox) 30 ml PO Q4HR PRN PRN Reason: GI DISTRESS Stop: 06/18/18 19:46 Bisacodyl (Dulcolax 10 Mg Supp) 10 mg RC DAILY PRN PRN Reason: Constipation Stop: 06/18/18 19:50 Brimonidine Tartrate (Alphagan 0.15% Ophth Soln) 1 drop EACH EYE TID [facility] Stop: 06/18/18 20:59 Last Admin: 04/24/18 08:31 Dose: 1 drop Calcium Carbonate (Tums) 500 mg PO Q6H PRN PRN Reason: Indigestion Stop: 06/18/18 19:50 Carbidopa/Levodopa (Sinemet 25mg-100 Mg) 1 tab PO HS [facility] Stop: 06/18/18 20:59 Last Admin: 04/23/18 20:53 Dose: 1 tab Carbidopa/Levodopa (Sinemet 25mg-100 Mg) 2 tab PO TIDWM [facility] Stop: 06/19/18 07:59 Last Admin: 04/24/18 08:31 Dose: 2 tab Carvedilol (Coreg) 12.5 mg PO DAILY [facility] Stop: 06/19/18 08:59 Last Admin: 04/24/18 08:32 Dose: 12.5 mg Clopidogrel Bisulfate (Plavix) 75 mg PO DAILY [facility] Stop: 06/19/18 08:59 Last Admin: 04/24/18 08:32 Dose: 75 mg Dextrose (Glutose 40%) 37.5 gm PO PRN PRN PRN Reason: bs<70 Stop: 06/18/18 19:50 Divalproex Sodium (Depakote Dr) 500 mg PO BID [facility]; Protocol Stop: 06/19/18 08:59 Last Admin: 04/24/18 08:32 Dose: 500 mg Docusate Sodium (Colace) 250 mg PO BID [facility] Stop: 06/19/18 08:59 Last Admin: 04/24/18 08:33 Dose: 250 mg Dorzolamide HCl (Trusopt 2% Oph Soln) 1 drop EACH EYE BID [facility] Stop: 06/19/18 16:59 Last Admin: 04/24/18 08:33 Dose: 1 drop Entacapone (Comtan) 200 mg PO TID [facility] Stop: 06/18/18 20:59 Last Admin: 04/24/18 08:33 Dose: 200 mg Guaifenesin/Dextromethorphan (Robitussin Dm) 10 ml PO Q6HR PRN PRN Reason: Cough Stop: 06/18/18 20:11 Last Admin: 04/22/18 11:52 Dose: 10 ml Insulin Aspart (Novolog Insulin Sliding Scale) 0 units SUBQ ACHS [facility]; Protocol Stop: 06/19/18 07:29 Last Admin: 04/24/18 06:32 Dose: Not Given Isosorbide Dinitrate (Isordil) 5 mg PO DAILY [facility] Stop: 06/19/18 08:59 Last Admin: 04/24/18 08:33 Dose: 5 mg Lorazepam (Ativan) 0.5 mg PO Q4HR PRN; Protocol PRN Reason: Anxiety Stop: 05/19/18 19:46 Magnesium Hydroxide (Milk Of Magnesia) 30 ml PO HS PRN PRN Reason: Constipation Magnesium Oxide (Mag-Oxide) 400 mg PO BID [facility] Stop: 06/19/18 08:59 Last Admin: 04/24/18 08:34 Dose: 400 mg Mirtazapine (Remeron) 7.5 mg PO HS [facility] Stop: 06/18/18 22:14 Last Admin: 04/23/18 20:51 Dose: 7.5 mg Miscellaneous (Linaclotide [Linzess]) 145 mcg PO BID [facility] Stop: 06/19/18 08:59 Last Admin: 04/20/18 17:10 Dose: Not Given Miscellaneous (Pimavanserin Tartrate [Nuplazid]) 17 mg PO DAILY [facility] Stop: 06/19/18 08:59 Last Admin: 04/20/18 09:51 Dose: Not Given Miscellaneous (Rasagiline Mesylate [Azilect]) 1 mg PO DAILY [facility] Stop: 06/19/18 08:59 Last Admin: 04/20/18 09:51 Dose: Not Given Multivitamins/Vitamin C (Theragran) 1 tab PO DAILY [facility] Stop: 06/19/18 08:59 Last Admin: 04/24/18 08:34 Dose: 1 tab Mupirocin (Bactroban Oint) 1 appl NS BID [facility] Stop: 04/26/18 09:01 Last Admin: 04/24/18 08:34 Dose: 1 appl Oxybutynin Chloride (Ditropan Xl) 10 mg PO HS [facility] Stop: 06/18/18 22:14 Last Admin: 04/23/18 20:51 Dose: 10 mg Pioglitazone HCl (Actos) 15 mg PO DAILY [facility] Stop: 06/19/18 08:59 Last Admin: 04/24/18 08:34 Dose: 15 mg Potassium Chloride (Klor-Con) 10 meq PO DAILY [facility] Stop: 06/20/18 08:59 Last Admin: 04/24/18 08:34 Dose: 10 meq Quetiapine Fumarate (Seroquel) 12.5 mg PO HS [facility]; Protocol Stop: 06/19/18 20:59 Last Admin: 04/23/18 20:52 Dose: 12.5 mg Sodium Phosphate (Fleet Enema) 135 ml RC DAILY PRN PRN Reason: Constipation Stop: 06/18/18 19:50 Tramadol HCl (Ultram) 50 mg PO HS PRN PRN Reason: Pain (Severe) Stop: 06/18/18 19:50 Zolpidem Tartrate (Ambien) 5 mg PO HS PRN PRN Reason: Insomnia Stop: 06/18/18 19:46 Last Admin: 04/19/18 21:53 Dose: 5 mg General: alert, other (anxious) HEENT: NC/AT Neck: Supple Lungs: CTAB Cardiovascular: Normal S1, Normal S2 Abdomen: non-tender Extremities: clear, edema Neurological: no change Internal Medicine Assmt/Plan - Assessment Assessment: severe agitation psychosis hyperglycemia h/o dm h/o bipolar disease h/o htn - Plan Plan: as per psych will monitor Nutritional Asmnt/Malnutr-PDOC - Dietary Evaluation Malnutrition Findings (Please click <Entered> for more info): Nutritional Asmnt/Malnutrition Start: 04/20/18 15: 00 Text: Status: Complete Freq: Protocol: Document 04/20/18 15:00 TIM (Rec: 04/20/18 15:32 TIM CAST) Nutritional Asmnt/Malnutrition Patient General Information Nutritional Screening High Risk Diagnosis psychosis Pertinent Medical Hx/Surgical Hx HTN, hyperlipidemia, bipolar disorder, DM Subjective Information Glucose 225 at admission noted . Pt sitting in hallway at time of visit. Pt's alert, but appears confused. Pt states he has no diet/meal preferences. Per EMR, pt finished 50% of dinner last night after admission. Pt does not appear ready for diabetic education. Current Diet Order/ Nutrition Support CCHO 60 gm Pertinent Medications maalox, dulcolax, tums, dextrose, colace, novolog, MOM , mag-oxide, remeron, theragran, actos, klor-con, seroquel Pertinent Labs 04/20: POC 157-243 04/19: POC 239, glucose 225, POC 239, cholesterol 207-208, Na 135 Nutritional Hx/Data Height 1.73 m Height (Calculated Centimeters) 172.7 Current Weight (lbs) 72.575 kg Weight (Calculated Kilograms) 72.6 Weight (Calculated Grams) 53589.8 [place] Body Weight 154 lb Body Mass Index (BMI) 24.3 Weight Status Approriate GI Symptoms GI Symptoms None Last BM none noted Difficult in: None Food Allergies No Skin Integrity/Comment: duc pinto 20 Estimated Nutritional Goals BEE in Kcals: Using Current wt Calories/Kcals/Kg 25-30 Kcals Calculated 4766-1199 Protein: Using Current wt Protein g/k.0 Protein Calculated 73 g Fluid: ml 1282-4847 (1 ml/kcal) Nutritional Problem 1. Problem Problem Altered nutrition related lab values Etiology hyperglycemia, endocrine dysfunction Signs/Symptoms: glucose 225, POC 157-243 Malnutrition Alert Is there a minimum of two criteria No selected? Query Text:Check all the applicable criteria. A minimum of two criteria are recommended for diagnosis of either severe or non-severe malnutrition. Malnutrition Related to Morbid Obesity Malnutrition related to morbid obesity No Intervention/Recommendation Comments 1. Continue with CCHO 60 gm diet as ordered. Will attempt to provide education at follow -up visit 2. Monitor PO intake, wt, labs and skin integrity 3. F/U as moderate risk in 3-5 days, 04/23-04/25 Expected Outcomes/Goals Expected Outcomes/Goals 1. PO intake to meet at least 75% of all meals 2. Wt stability, skin to remain intact, labs to approach normal limits Reviewed by Leny Shi RD
[2018-04-24] MEDS: Guaifenesin DM 10 ML UDC PO PRN (20:37)
[2018-04-24] MEDS: Oxybutynin Chloride 5 mg ER Tab PO SCH (20:40)
--- NOTE | 2018-04-25 05:45 | Progress Notes ---
DATE: SUBJECTIVE: Chart reviewed and the patient interviewed. Also discussed the patient's condition with the staff and reviewed records and labs. The patient continued to be anxious and he is still restless and easily agitated. The patient also still wants to leave and is still having difficulty following directions. Also still having mood swings and at times, the patient is calm and cooperative and other times, the patient is very easily agitated. Otherwise, the patient is compliant with taking his medications with no side effects of medications. ASSESSMENT: The patient is still anxious. TREATMENT PLAN: Continue to monitor his behavior and his condition closely. Also, continue to work on his ineffective coping and continue adjusting psychotropic medications. Also, we will increase Seroquel to 12.5 mg twice a day and we will continue to follow up. JOB# [id number]
[2018-04-25] MEDS: INSULIN ASPART SLIDING SCALE 100 UNITS/ML UNIT SUBQ SCH ×4 (06:39→21:18)
[2018-04-25] MEDS: Potassium Chloride 10 mEq ER Tab PO SCH (09:09)
[2018-04-25] MEDS: Multivitamin Tab PO SCH (09:10)
--- NOTE | 2018-04-25 12:46 | Internal Medicine Prog Note ---
Internal Medicine Subjective - Subjective Service Date: 04/25/18 Patient is:: verbal, other (confused) Patient Complaints of:: SOB Per staff patient has:: no adverse event, tolerating meds Internal Medicine Objective - Results Result Diagrams: 04/19/18 15:15 04/19/18 15:15 Recent Labs: Laboratory Last Values WBC 5.1 Th/cmm (4.8-10.8) 04/19/18 15:15 RBC 4.90 Mil/cmm (3.80-5.80) 04/19/18 15:15 Hgb 14.2 gm/dL (12-16) 04/19/18 15:15 Hct 42.8 % (41.0-60) 04/19/18 15:15 MCV 87.4 fl (80-99) 04/19/18 15:15 MCH 28.9 pg (27.0-31.0) 04/19/18 15:15 MCHC Differential 33.1 pg (28.0-36.0) 04/19/18 15:15 RDW 12.3 % (11.5-20.0) 04/19/18 15:15 Plt Count 253 Th/cmm (150-400) 04/19/18 15:15 MPV 6.6 fl 04/19/18 15:15 Neutrophils % 63.8 % (40.0-80.0) 04/19/18 15:15 Lymphocytes % 19.3 % (20.0-50.0) L 04/19/18 15:15 Monocytes % 7.5 % (2.0-10.0) 04/19/18 15:15 Eosinophils % 8.4 % (0.0-5.0) H 04/19/18 15:15 Basophils % 1.0 % (0.0-2.0) 04/19/18 15:15 Sodium 135 mEq/L (136-145) L 04/19/18 15:15 Potassium 4.2 mEq/L (3.5-5.1) 04/19/18 15:15 Chloride 100 mEq/L (98-107) 04/19/18 15:15 Carbon Dioxide 28.5 mEq/L (21.0-31.0) 04/19/18 15:15 Anion Gap 10.7 (7.0-16.0) 04/19/18 15:15 BUN 18 mg/dL (7-25) 04/19/18 15:15 Creatinine 1.0 mg/dL (0.7-1.3) 04/19/18 15:15 Est GFR ( Amer) > 60.0 ml/min (>90) 04/19/18 15:15 Est GFR (Non-Af Amer) > 60.0 ml/min 04/19/18 15:15 BUN/Creatinine Ratio 18.0 04/19/18 15:15 Glucose 225 mg/dL (70-105) H 04/19/18 15:15 POC Glucose 224 MG/DL (70 - 105) H 04/25/18 11:31 Calcium 9.9 mg/dL (8.6-10.3) 04/19/18 15:15 Total Bilirubin 0.4 mg/dL (0.3-1.0) 04/19/18 15:15 AST 9 U/L (13-39) L 04/19/18 15:15 ALT 3 U/L (7-52) L 04/19/18 15:15 Alkaline Phosphatase 57 U/L (34-104) 04/19/18 15:15 Troponin I < 0.01 ng/mL (0.01-0.05) L 04/19/18 15:15 Total Protein 7.8 gm/dL (6.0-8.3) 04/19/18 15:15 Albumin 4.4 gm/dL (4.2-5.5) 04/19/18 15:15 Globulin 3.4 gm/dL 04/19/18 15:15 Albumin/Globulin Ratio 1.3 (1.0-1.8) 04/19/18 15:15 Triglycerides 147 mg/dL (<150) 04/19/18 15:15 Cholesterol 208 mg/dL (<200) H 04/19/18 15:15 LDL Cholesterol Direct 141 mg/dL (75-193) 04/19/18 15:15 HDL Cholesterol 46 mg/dL (23-92) 04/19/18 15:15 TSH 1.25 uIU/ml (0.34-5.60) 04/19/18 15:15 Urine Source CLEAN C 04/19/18 15:28 Urine Color YELLOW 04/19/18 15:28 Urine Clarity CLEAR (CLEAR) 04/19/18 15: Urine pH 6.5 (4.6 - 8.0) 04/19/18 15:28 Ur Specific [place] 1.020 (1.005-1.030) 04/19/18 15:28 Urine Protein TRACE mg/dL (NEGATIVE) 04/19/18 15: Urine Glucose (UA) >=1000 mg/dL (NEGATIVE) H 04/19/18 15: Urine Ketones TRACE mg/dL (NEGATIVE) 04/19/18 15: Urine Blood NEGATIVE (NEGATIVE) 04/19/18 15: Urine Nitrate NEGATIVE (NEGATIVE) 04/19/18 15: Urine Bilirubin NEGATIVE (NEGATIVE) 04/19/18 15: Urine Urobilinogen 0.2 E.U./dL (0.2 - 1.0) 04/19/18 15: Ur Leukocyte Esterase NEGATIVE (NEGATIVE) 04/19/18 15: Urine RBC NONE SEEN /hpf (0-5) 04/19/18 15: Urine WBC 0-2 /hpf (0-5) 04/19/18 15: Ur Epithelial Cells FEW /lpf (FEW) 04/19/18 15: Urine Bacteria OCCASIONAL /hpf (NONE SEEN) 04/19/18 15:28 Salicylates < 25.0 mg/L (30.0-100.0) L 04/19/18 15:15 Urine Opiates Screen NEGATIVE (NEGATIVE) 04/19/18 15: Urine Methadone Screen NEGATIVE (NEGATIVE) 04/19/18 15: Acetaminophen < 10.0 ug/mL (10.0-30.0) L 04/19/18 15:15 Ur Barbiturates Screen NEGATIVE (NEGATIVE) 04/19/18 15:28 Valproic Acid 59.6 ug/mL (50.0-100.0) 04/19/18 15:15 Ur Tricyclics Screen NEGATIVE (NEGATIVE) 04/19/18 15: Ur Phencyclidine Scrn NEGATIVE (NEGATIVE) 04/19/18 15:28 Amphetamines Screen NEGATIVE (NEGATIVE) 04/19/18 15:28 U Methamphetamines Scrn NEGATIVE (NEGATIVE) 04/19/18 15:28 U Benzodiazepines Scrn NEGATIVE (NEGATIVE) 04/19/18 15:28 U Cocaine Metab Screen NEGATIVE (NEGATIVE) 04/19/18 15:28 U Cannabinoids Screen NEGATIVE (NEGATIVE) 04/19/18 15:28 Ethyl Alcohol < 10 mg/dL (0-10) 04/19/18 15:15 RPR NONREACTIVE (NONREACTIVE) 04/19/18 15:15 - Physical Exam Vitals and I&O: Vital Signs Temp 97.4 F 04/25/18 06:25 Pulse 77 04/25/18 09:12 Resp 18 04/25/18 06:25 BP 148/77 04/25/18 09:12 Pulse Ox 99 04/25/18 06:25 Intake & Output 04/24/18 04/25/18 04/25/18 18:59 06:59 18:59 Intake Total 240 Balance 240 Intake: Oral 240 Other: # Voids 3 # Bowel Movements 1 0 Active Medications: Current Medications Acetaminophen (Tylenol) 650 mg PO Q4HR PRN PRN Reason: Mild Pain / Temp above 100 Stop: 06/18/18 19:46 Last Admin: 04/20/18 17:55 Dose: 650 mg Al Hydrox/Mg Hydrox/Simethicone (Maalox) 30 ml PO Q4HR PRN PRN Reason: GI DISTRESS Stop: 06/18/18 19:46 Bisacodyl (Dulcolax 10 Mg Supp) 10 mg RC DAILY PRN PRN Reason: Constipation Stop: 06/18/18 19:50 Brimonidine Tartrate (Alphagan 0.15% Oph Soln) 1 drop EACH EYE TID [facility] Stop: 06/18/18 20:59 Last Admin: 04/25/18 09:18 Dose: 1 drop Calcium Carbonate (Tums) 500 mg PO Q6H PRN PRN Reason: Indigestion Stop: 06/18/18 19:50 Carbidopa/Levodopa (Sinemet 25mg-100 Mg) 1 tab PO HS [facility] Stop: 06/18/18 20:59 Last Admin: 04/24/18 20:39 Dose: 1 tab Carbidopa/Levodopa (Sinemet 25mg-100 Mg) 2 tab PO TIDWM [facility] Stop: 06/19/18 07:59 Last Admin: 04/25/18 11:26 Dose: 2 tab Carvedilol (Coreg) 12.5 mg PO DAILY [facility] Stop: 06/19/18 08:59 Last Admin: 04/25/18 09:12 Dose: 12.5 mg Clopidogrel Bisulfate (Plavix) 75 mg PO DAILY [facility] Stop: 06/19/18 08:59 Last Admin: 04/25/18 09:10 Dose: 75 mg Dextrose (Glutose 40%) 37.5 gm PO PRN PRN PRN Reason: bs<70 Stop: 06/18/18 19:50 Divalproex Sodium (Depakote Dr) 500 mg PO BID [facility]; Protocol Stop: 06/19/18 08:59 Last Admin: 04/25/18 09:13 Dose: 500 mg Docusate Sodium (Colace) 250 mg PO BID [facility] Stop: 06/19/18 08:59 Last Admin: 04/25/18 09:13 Dose: 250 mg Dorzolamide HCl (Trusopt 2% [facility]) 1 drop EACH EYE BID [facility] Stop: 06/19/18 16:59 Last Admin: 04/25/18 09:18 Dose: 1 drop Entacapone (Comtan) 200 mg PO TID [facility] Stop: 06/18/18 20:59 Last Admin: 04/25/18 09:13 Dose: 200 mg Guaifenesin/Dextromethorphan (Robitussin Dm) 10 ml PO Q6HR PRN PRN Reason: Cough Stop: 06/18/18 20:11 Last Admin: 04/24/18 20:37 Dose: 10 ml Insulin Aspart (Novolog Insulin Sliding Scale) 0 units SUBQ ACHS [facility]; Protocol Stop: 06/19/18 07:29 Last Admin: 04/25/18 12:04 Dose: 4 units Isosorbide Dinitrate (Isordil) 5 mg PO DAILY [facility] Stop: 06/19/18 08:59 Last Admin: 04/25/18 09:10 Dose: 5 mg Lorazepam (Ativan) 0.5 mg PO Q4HR PRN; Protocol PRN Reason: Anxiety Stop: 05/19/18 19:46 Magnesium Hydroxide (Milk Of Magnesia) 30 ml PO HS PRN PRN Reason: Constipation Magnesium Oxide (Mag-Oxide) 400 mg PO BID [facility] Stop: 06/19/18 08:59 Last Admin: 04/25/18 09:13 Dose: 400 mg Mirtazapine (Remeron) 7.5 mg PO HS [facility] Stop: 06/18/18 22:14 Last Admin: 04/24/18 20:39 Dose: 7.5 mg Miscellaneous (Linaclotide [Linzess]) 145 mcg PO BID [facility] Stop: 06/19/18 08:59 Last Admin: 04/20/18 17:10 Dose: Not Given Miscellaneous (Pimavanserin Tartrate [Nuplazid]) 17 mg PO DAILY [facility] Stop: 06/19/18 08:59 Last Admin: 04/20/18 09:51 Dose: Not Given Miscellaneous (Rasagiline Mesylate [Azilect]) 1 mg PO DAILY [facility] Stop: 06/19/18 08:59 Last Admin: 04/20/18 09:51 Dose: Not Given Multivitamins/Vitamin C (Theragran) 1 tab PO DAILY [facility] Stop: 06/19/18 08:59 Last Admin: 04/25/18 09:10 Dose: 1 tab Mupirocin (Bactroban Oint) 1 appl NS BID [facility] Stop: 04/26/18 09:01 Last Admin: 04/25/18 09:22 Dose: 1 appl Oxybutynin Chloride (Ditropan Xl) 10 mg PO HS [facility] Stop: 06/18/18 22:14 Last Admin: 04/24/18 20:40 Dose: 10 mg Pioglitazone HCl (Actos) 15 mg PO DAILY [facility] Stop: 06/19/18 08:59 Last Admin: 04/25/18 09:12 Dose: 15 mg Potassium Chloride (Klor-Con) 10 meq PO DAILY [facility] Stop: 06/20/18 08:59 Last Admin: 04/25/18 09:09 Dose: 10 meq Quetiapine Fumarate (Seroquel) 12.5 mg PO BID [facility]; Protocol Stop: 06/23/18 16:59 Last Admin: 04/25/18 09:12 Dose: 12.5 mg Sodium Phosphate (Fleet Enema) 135 ml RC DAILY PRN PRN Reason: Constipation Stop: 06/18/18 19:50 Tramadol HCl (Ultram) 50 mg PO HS PRN PRN Reason: Pain (Severe) Stop: 06/18/18 19:50 Zolpidem Tartrate (Ambien) 5 mg PO HS PRN PRN Reason: Insomnia Stop: 06/18/18 19:46 Last Admin: 04/19/18 21:53 Dose: 5 mg General: alert, other (anxious) HEENT: NC/AT Neck: Supple Lungs: CTAB Cardiovascular: Normal S1, Normal S2 Abdomen: non-tender Extremities: clear, edema Neurological: no change Internal Medicine Assmt/Plan - Assessment Assessment: htn dyslipidemia psychosis - Plan Plan: cpm Nutritional Asmnt/Malnutr-PDOC - Dietary Evaluation Malnutrition Findings (Please click <Entered> for more info): Nutritional Asmnt/Malnutrition Start: 04/20/18 15: 00 Text: Status: Complete Freq: Protocol: Document 04/20/18 15:00 TIM (Rec: 04/20/18 15:32 TIM CAST) Nutritional Asmnt/Malnutrition Patient General Information Nutritional Screening High Risk Diagnosis psychosis Pertinent Medical Hx/Surgical Hx HTN, hyperlipidemia, bipolar disorder, DM Subjective Information Glucose 225 at admission noted . Pt sitting in hallway at time of visit. Pt's alert, but appears confused. Pt states he has no diet/meal preferences. Per EMR, pt finished 50% of dinner last night after admission. Pt does not appear ready for diabetic education. Current Diet Order/ Nutrition Support CCHO 60 gm Pertinent Medications maalox, dulcolax, tums, dextrose, colace, novolog, MOM , mag-oxide, remeron, theragran, actos, klor-con, seroquel Pertinent Labs 04/20: POC 157-243 04/19: POC 239, glucose 225, POC 239, cholesterol 207-208, Na 135 Nutritional Hx/Data Height 5 ft 8 in Height (Calculated Centimeters) 172.7 Current Weight (lbs) 160 lb Weight (Calculated Kilograms) 72.6 Weight (Calculated Grams) 57700.8 [place] Body Weight 154 lb Body Mass Index (BMI) 24.3 Weight Status Approriate GI Symptoms GI Symptoms None Last BM none noted Difficult in: None Food Allergies No Skin Integrity/Comment: duc pinto 20 Estimated Nutritional Goals BEE in Kcals: Using Current wt Calories/Kcals/Kg 25-30 Kcals Calculated 3608-5667 Protein: Using Current wt Protein g/k.0 Protein Calculated 73 g Fluid: ml 9230-2270 (1 ml/kcal) Nutritional Problem 1. Problem Problem Altered nutrition related lab values Etiology hyperglycemia, endocrine dysfunction Signs/Symptoms: glucose 225, POC 157-243 Malnutrition Alert Is there a minimum of two criteria No selected? Query Text:Check all the applicable criteria. A minimum of two criteria are recommended for diagnosis of either severe or non-severe malnutrition. Malnutrition Related to Morbid Obesity Malnutrition related to morbid obesity No Intervention/Recommendation Comments 1. Continue with CCHO 60 gm diet as ordered. Will attempt to provide education at follow -up visit 2. Monitor PO intake, wt, labs and skin integrity 3. F/U as moderate risk in 3-5 days, 04/23-04/25 Expected Outcomes/Goals Expected Outcomes/Goals 1. PO intake to meet at least 75% of all meals 2. Wt stability, skin to remain intact, labs to approach normal limits Reviewed by Leny Shi RD
--- NOTE | 2018-04-25 16:20 | Progress Notes ---
DATE: 04/25/2018 SUBJECTIVE: Case was discussed with staff of the patient, reviewed records. This is a 67-year-old male who was admitted on the 04/19/2018 because of confusion, paranoia, agitation, pacing up and down the unit at [facility], has not been able to follow direction easily agitated with severe mood swings, restless. When I tried to talk to him, he was very intrusive kept going back and forth asking the same questions. The staff report that he has been screaming hard to redirect, unpredictable, impulsive, needing redirection. He has been on Depakote 500 mg twice a day and he is diabetic, insulin and Remeron 75 mg at bedtime and Seroquel that was increased yesterday to 12.5 mg twice a day with no side effects, no sedation, no nausea, no extrapyramidal symptoms. We will continue the patient in group therapy, milieu therapy, and adjust medications as needed. JOB# [id number]
[2018-04-25] MEDS: Oxybutynin Chloride 5 mg ER Tab PO SCH (20:49)
[2018-04-26] MEDS: INSULIN ASPART SLIDING SCALE 100 UNITS/ML UNIT SUBQ SCH ×2 (06:31→12:31)
[2018-04-26] MEDS: Multivitamin Tab PO SCH (09:06)
[2018-04-26] MEDS: Potassium Chloride 10 mEq ER Tab PO SCH (09:06)
--- NOTE | 2018-04-26 14:11 | Internal Medicine Prog Note ---
Internal Medicine Subjective - Subjective Patient seen and examined:: chart reviewed Patient is:: verbal, other (confused) Patient Complaints of:: SOB Per staff patient has:: no adverse event, tolerating meds Internal Medicine Objective - Results Result Diagrams: 04/19/18 15:15 04/19/18 15:15 Recent Labs: Laboratory Last Values WBC 5.1 Th/cmm (4.8-10.8) 04/19/18 15:15 RBC 4.90 Mil/cmm (3.80-5.80) 04/19/18 15:15 Hgb 14.2 gm/dL (12-16) 04/19/18 15:15 Hct 42.8 % (41.0-60) 04/19/18 15:15 MCV 87.4 fl (80-99) 04/19/18 15:15 MCH 28.9 pg (27.0-31.0) 04/19/18 15:15 MCHC Differential 33.1 pg (28.0-36.0) 04/19/18 15:15 RDW 12.3 % (11.5-20.0) 04/19/18 15:15 Plt Count 253 Th/cmm (150-400) 04/19/18 15:15 MPV 6.6 fl 04/19/18 15:15 Neutrophils % 63.8 % (40.0-80.0) 04/19/18 15:15 Lymphocytes % 19.3 % (20.0-50.0) L 04/19/18 15:15 Monocytes % 7.5 % (2.0-10.0) 04/19/18 15:15 Eosinophils % 8.4 % (0.0-5.0) H 04/19/18 15:15 Basophils % 1.0 % (0.0-2.0) 04/19/18 15:15 Sodium 135 mEq/L (136-145) L 04/19/18 15:15 Potassium 4.2 mEq/L (3.5-5.1) 04/19/18 15:15 Chloride 100 mEq/L (98-107) 04/19/18 15:15 Carbon Dioxide 28.5 mEq/L (21.0-31.0) 04/19/18 15:15 Anion Gap 10.7 (7.0-16.0) 04/19/18 15:15 BUN 18 mg/dL (7-25) 04/19/18 15:15 Creatinine 1.0 mg/dL (0.7-1.3) 04/19/18 15:15 Est GFR ( Amer) > 60.0 ml/min (>90) 04/19/18 15:15 Est GFR (Non-Af Amer) > 60.0 ml/min 04/19/18 15:15 BUN/Creatinine Ratio 18.0 04/19/18 15:15 Glucose 225 mg/dL (70-105) H 04/19/18 15:15 POC Glucose 179 MG/DL (70 - 105) H 04/26/18 11:48 Calcium 9.9 mg/dL (8.6-10.3) 04/19/18 15:15 Total Bilirubin 0.4 mg/dL (0.3-1.0) 04/19/18 15:15 AST 9 U/L (13-39) L 04/19/18 15:15 ALT 3 U/L (7-52) L 04/19/18 15:15 Alkaline Phosphatase 57 U/L (34-104) 04/19/18 15:15 Troponin I < 0.01 ng/mL (0.01-0.05) L 04/19/18 15:15 Total Protein 7.8 gm/dL (6.0-8.3) 04/19/18 15:15 Albumin 4.4 gm/dL (4.2-5.5) 04/19/18 15:15 Globulin 3.4 gm/dL 04/19/18 15:15 Albumin/Globulin Ratio 1.3 (1.0-1.8) 04/19/18 15:15 Triglycerides 147 mg/dL (<150) 04/19/18 15:15 Cholesterol 208 mg/dL (<200) H 04/19/18 15:15 LDL Cholesterol Direct 141 mg/dL (75-193) 04/19/18 15:15 HDL Cholesterol 46 mg/dL (23-92) 04/19/18 15:15 TSH 1.25 uIU/ml (0.34-5.60) 04/19/18 15:15 Urine Source CLEAN C 04/19/18 15:28 Urine Color YELLOW 04/19/18 15:28 Urine Clarity CLEAR (CLEAR) 04/19/18 15: Urine pH 6.5 (4.6 - 8.0) 04/19/18 15:28 Ur Specific [place] 1.020 (1.005-1.030) 04/19/18 15:28 Urine Protein TRACE mg/dL (NEGATIVE) 04/19/18 15: Urine Glucose (UA) >=1000 mg/dL (NEGATIVE) H 04/19/18 15: Urine Ketones TRACE mg/dL (NEGATIVE) 04/19/18 15: Urine Blood NEGATIVE (NEGATIVE) 04/19/18 15: Urine Nitrate NEGATIVE (NEGATIVE) 04/19/18 15: Urine Bilirubin NEGATIVE (NEGATIVE) 04/19/18 15: Urine Urobilinogen 0.2 E.U./dL (0.2 - 1.0) 04/19/18 15: Ur Leukocyte Esterase NEGATIVE (NEGATIVE) 04/19/18 15: Urine RBC NONE SEEN /hpf (0-5) 04/19/18 15: Urine WBC 0-2 /hpf (0-5) 04/19/18 15: Ur Epithelial Cells FEW /lpf (FEW) 04/19/18 15: Urine Bacteria OCCASIONAL /hpf (NONE SEEN) 04/19/18 15:28 Salicylates < 25.0 mg/L (30.0-100.0) L 04/19/18 15:15 Urine Opiates Screen NEGATIVE (NEGATIVE) 04/19/18 15: Urine Methadone Screen NEGATIVE (NEGATIVE) 04/19/18 15: Acetaminophen < 10.0 ug/mL (10.0-30.0) L 04/19/18 15:15 Ur Barbiturates Screen NEGATIVE (NEGATIVE) 04/19/18 15:28 Valproic Acid 59.6 ug/mL (50.0-100.0) 04/19/18 15:15 Ur Tricyclics Screen NEGATIVE (NEGATIVE) 04/19/18 15: Ur Phencyclidine Scrn NEGATIVE (NEGATIVE) 04/19/18 15:28 Amphetamines Screen NEGATIVE (NEGATIVE) 04/19/18 15:28 U Methamphetamines Scrn NEGATIVE (NEGATIVE) 04/19/18 15:28 U Benzodiazepines Scrn NEGATIVE (NEGATIVE) 04/19/18 15:28 U Cocaine Metab Screen NEGATIVE (NEGATIVE) 04/19/18 15:28 U Cannabinoids Screen NEGATIVE (NEGATIVE) 04/19/18 15:28 Ethyl Alcohol < 10 mg/dL (0-10) 04/19/18 15:15 RPR NONREACTIVE (NONREACTIVE) 04/19/18 15:15 - Physical Exam Vitals and I&O: Vital Signs Temp 97.1 F 04/26/18 05:47 Pulse 67 04/26/18 09:08 Resp 19 04/26/18 05:47 BP 150/71 04/26/18 09:08 Pulse Ox 98 04/26/18 05:47 Intake & Output 04/25/18 04/26/18 04/26/18 18:59 06:59 18:59 Intake Total 800 420 Balance 800 420 Weight (lbs) 72.575 kg Intake: Oral 800 420 Other: # Voids 3 2 # Bowel Movements 1 1 Weight Source Bedscale Active Medications: Current Medications Acetaminophen (Tylenol) 650 mg PO Q4HR PRN PRN Reason: Mild Pain / Temp above 100 Stop: 06/18/18 19:46 Last Admin: 04/20/18 17:55 Dose: 650 mg Al Hydrox/Mg Hydrox/Simethicone (Maalox) 30 ml PO Q4HR PRN PRN Reason: GI DISTRESS Stop: 06/18/18 19:46 Bisacodyl (Dulcolax 10 Mg Supp) 10 mg RC DAILY PRN PRN Reason: Constipation Stop: 06/18/18 19:50 Brimonidine Tartrate (Alphagan 0.15% Ophth Soln) 1 drop EACH EYE TID [facility] Stop: 06/18/18 20:59 Last Admin: 04/26/18 09:05 Dose: 1 drop Calcium Carbonate (Tums) 500 mg PO Q6H PRN PRN Reason: Indigestion Stop: 06/18/18 19:50 Carbidopa/Levodopa (Sinemet 25mg-100 Mg) 1 tab PO HS [facility] Stop: 06/18/18 20:59 Last Admin: 04/25/18 20:49 Dose: 1 tab Carbidopa/Levodopa (Sinemet 25mg-100 Mg) 2 tab PO TIDWM [facility] Stop: 06/19/18 07:59 Last Admin: 04/26/18 09:05 Dose: 2 tab Carvedilol (Coreg) 12.5 mg PO DAILY [facility] Stop: 06/19/18 08:59 Last Admin: 04/26/18 09:08 Dose: 12.5 mg Clopidogrel Bisulfate (Plavix) 75 mg PO DAILY [facility] Stop: 06/19/18 08:59 Last Admin: 04/26/18 09:08 Dose: 75 mg Dextrose (Glutose 40%) 37.5 gm PO PRN PRN PRN Reason: bs<70 Stop: 06/18/18 19:50 Divalproex Sodium (Depakote Dr) 500 mg PO BID [facility]; Protocol Stop: 06/19/18 08:59 Last Admin: 04/26/18 09:08 Dose: 500 mg Docusate Sodium (Colace) 250 mg PO BID [facility] Stop: 06/19/18 08:59 Last Admin: 04/26/18 09:08 Dose: 250 mg Dorzolamide HCl (Trusopt 2% Oph Soln) 1 drop EACH EYE BID [facility] Stop: 06/19/18 16:59 Last Admin: 04/26/18 09:05 Dose: 1 drop Entacapone (Comtan) 200 mg PO TID [facility] Stop: 06/18/18 20:59 Last Admin: 04/26/18 09:06 Dose: 200 mg Guaifenesin/Dextromethorphan (Robitussin Dm) 10 ml PO Q6HR PRN PRN Reason: Cough Stop: 06/18/18 20:11 Last Admin: 04/24/18 20:37 Dose: 10 ml Insulin Aspart (Novolog Insulin Sliding Scale) 0 units SUBQ ACHS [facility]; Protocol Stop: 06/19/18 07:29 Last Admin: 04/26/18 12:31 Dose: 2 units Isosorbide Dinitrate (Isordil) 5 mg PO DAILY [facility] Stop: 06/19/18 08:59 Last Admin: 04/26/18 09:07 Dose: 5 mg Lorazepam (Ativan) 0.5 mg PO Q4HR PRN; Protocol PRN Reason: Anxiety Stop: 05/19/18 19:46 Magnesium Hydroxide (Milk Of Magnesia) 30 ml PO HS PRN PRN Reason: Constipation Magnesium Oxide (Mag-Oxide) 400 mg PO BID [facility] Stop: 06/19/18 08:59 Last Admin: 04/26/18 09:08 Dose: 400 mg Mirtazapine (Remeron) 7.5 mg PO HS [facility] Stop: 06/18/18 22:14 Last Admin: 04/25/18 20:49 Dose: 7.5 mg Miscellaneous (Linaclotide [Linzess]) 145 mcg PO BID [facility] Stop: 06/19/18 08:59 Last Admin: 04/20/18 17:10 Dose: Not Given Miscellaneous (Pimavanserin Tartrate [Nuplazid]) 17 mg PO DAILY [facility] Stop: 06/19/18 08:59 Last Admin: 04/20/18 09:51 Dose: Not Given Miscellaneous (Rasagiline Mesylate [Azilect]) 1 mg PO DAILY [facility] Stop: 06/19/18 08:59 Last Admin: 04/20/18 09:51 Dose: Not Given Multivitamins/Vitamin C (Theragran) 1 tab PO DAILY [facility] Stop: 06/19/18 08:59 Last Admin: 04/26/18 09:06 Dose: 1 tab Oxybutynin Chloride (Ditropan Xl) 10 mg PO HS [facility] Stop: 06/18/18 22:14 Last Admin: 04/25/18 20:49 Dose: 10 mg Pioglitazone HCl (Actos) 15 mg PO DAILY [facility] Stop: 06/19/18 08:59 Last Admin: 04/26/18 09:05 Dose: 15 mg Potassium Chloride (Klor-Con) 10 meq PO DAILY [facility] Stop: 06/20/18 08:59 Last Admin: 04/26/18 09:06 Dose: 10 meq Quetiapine Fumarate (Seroquel) 12.5 mg PO BID [facility]; Protocol Stop: 06/23/18 16:59 Last Admin: 04/26/18 09:06 Dose: 12.5 mg Sodium Phosphate (Fleet Enema) 135 ml RC DAILY PRN PRN Reason: Constipation Stop: 06/18/18 19:50 Tramadol HCl (Ultram) 50 mg PO HS PRN PRN Reason: Pain (Severe) Stop: 06/18/18 19:50 Zolpidem Tartrate (Ambien) 5 mg PO HS PRN PRN Reason: Insomnia Stop: 06/18/18 19:46 Last Admin: 04/19/18 21:53 Dose: 5 mg General: alert HEENT: NC/AT Neck: Supple Lungs: CTAB Cardiovascular: Normal S1, Normal S2 Abdomen: non-tender Extremities: clear, edema Neurological: no change Internal Medicine Assmt/Plan - Assessment Assessment: severe agitation psychosis hyperglycemia h/o dm h/o bipolar disease h/o htn - Plan Plan: as per psych will monitor Nutritional Asmnt/Malnutr-PDOC - Dietary Evaluation Malnutrition Findings (Please click <Entered> for more info): Nutritional Asmnt/Malnutrition Start: 04/20/18 15: 00 Text: Status: Complete Freq: Protocol: Document 04/20/18 15:00 TIM (Rec: 04/20/18 15:32 TIM CAST) Nutritional Asmnt/Malnutrition Patient General Information Nutritional Screening High Risk Diagnosis psychosis Pertinent Medical Hx/Surgical Hx HTN, hyperlipidemia, bipolar disorder, DM Subjective Information Glucose 225 at admission noted . Pt sitting in hallway at time of visit. Pt's alert, but appears confused. Pt states he has no diet/meal preferences. Per EMR, pt finished 50% of dinner last night after admission. Pt does not appear ready for diabetic education. Current Diet Order/ Nutrition Support CCHO 60 gm Pertinent Medications maalox, dulcolax, tums, dextrose, colace, novolog, MOM , mag-oxide, remeron, theragran, actos, klor-con, seroquel Pertinent Labs 04/20: POC 157-243 04/19: POC 239, glucose 225, POC 239, cholesterol 207-208, Na 135 Nutritional Hx/Data Height 1.73 m Height (Calculated Centimeters) 172.7 Current Weight (lbs) 72.575 kg Weight (Calculated Kilograms) 72.6 Weight (Calculated Grams) 67074.8 Phil Campbell Body Weight 154 lb Body Mass Index (BMI) 24.3 Weight Status Approriate GI Symptoms GI Symptoms None Last BM none noted Difficult in: None Food Allergies No Skin Integrity/Comment: dryness, duc 20 Estimated Nutritional Goals BEE in Kcals: Using Current wt Calories/Kcals/Kg 25-30 Kcals Calculated 6598-1093 Protein: Using Current wt Protein g/k.0 Protein Calculated 73 g Fluid: ml 3950-4467 (1 ml/kcal) Nutritional Problem 1. Problem Problem Altered nutrition related lab values Etiology hyperglycemia, endocrine dysfunction Signs/Symptoms: glucose 225, POC 157-243 Malnutrition Alert Is there a minimum of two criteria No selected? Query Text:Check all the applicable criteria. A minimum of two criteria are recommended for diagnosis of either severe or non-severe malnutrition. Malnutrition Related to Morbid Obesity Malnutrition related to morbid obesity No Intervention/Recommendation Comments 1. Continue with CCHO 60 gm diet as ordered. Will attempt to provide education at follow -up visit 2. Monitor PO intake, wt, labs and skin integrity 3. F/U as moderate risk in 3-5 days, 04/23-04/25 Expected Outcomes/Goals Expected Outcomes/Goals 1. PO intake to meet at least 75% of all meals 2. Wt stability, skin to remain intact, labs to approach normal limits Reviewed by Leny Shi RD
--- NOTE | 2018-04-28 04:28 | Discharge Summary ---
DATE OF DISCHARGE: 04/26/2018 PSYCHIATRIC DISCHARGE SUMMARY PATIENT'S AGE: 67-year-old. SEX: Male. PHYSICIAN: Coleman Lees MD, MPH FINAL DIAGNOSES: PRIMARY DIAGNOSIS: Unspecified psychosis. SECONDARY DIAGNOSIS: Dementia, moderate, with psychotic features and behavioral disturbances. REASON FOR HOSPITALIZATION: The patient was admitted to the hospital because of increased confusion and agitation as well as paranoia. HOSPITAL COURSE: The patient continued to be anxious and in irritable mood. The patient also needed lots of redirections. The patient was worried and fearful and he was depressed. The patient also continued to take Depakote in a dose of 500 mg twice a day and the patient was also given Seroquel in a dose of 12.5 mg twice a day. Gradually, the patient's affect was brighter. The patient was less depressed and less agitated. The patient also was easier to redirect and interacting with others. PHYSICAL EXAMINATION OF THE PATIENT: Basically within normal. Blood workup was also basically within normal. AFTER DISCHARGE PLANS: The patient discharged from the hospital and returned to [facility] with plans for followup there. EXPECTED OUTCOME AFTER DISCHARGE: Fair if the patient continued to take psychotropic medications and follow up with discharge plans. JOB# [id number]
== END 2018-04-26 14:00 | DRG 885 ==
LOC: ER 14:03 → GERO 16:51
PROVIDERS: ADMIT Psychiatry & Neurology Psychiatry; ATTEND Psychiatry & Neurology Psychiatry
DX: F29 Unspecified psychosis not due to a substance or known physiological condition (principal); E11.65 Type 2 diabetes mellitus with hyperglycemia; I10 Essential (primary) hypertension; G20 Parkinson's disease; E78.5 Hyperlipidemia, unspecified; F31.9 Bipolar disorder, unspecified; F02.80 Dementia in other diseases classified elsewhere, unspecified severity, without behavioral disturbance, psychotic disturbance, mood disturbance, and anxiety; H40.9 Unspecified glaucoma; M19.90 Unspecified osteoarthritis, unspecified site; N32.81 Overactive bladder; I25.10 Atherosclerotic heart disease of native coronary artery without angina pectoris; Z82.49 Family history of ischemic heart disease and other diseases of the circulatory system
CPT/HCPCS: 36415-UA; 80053-TC; 80061-TC; 80164-TC; 80307; 80320-TC; 80329-TC; 81001-TC; 82948-90; 83036-90; 84443-TC; 84484-TC; 85025-TC; 86592-TC; 93005; J1815; Z7610

== ENCOUNTER 2019-08-29 10:41 | Inpatient (IN) | payer MEDICARE, BC ==
[2019-08-29] MEDS ORDERED: Maalox 30 mL Cup PO PRN (11:23)
[2019-08-29] MEDS ORDERED: Guaifenesin DM 10 ML UDC PO PRN (11:23)
[2019-08-29 11:25] VITALS: BP 165/77
--- NOTE | 2019-08-29 11:50 | History & Physical ---
ADMIT DATE: 08/29/2019 HISTORY OF PRESENT ILLNESS: This is a 69-year-old male with a past medical history Parkinson's disease, type 2 diabetes, hypertension, glaucoma, dementia, hyperlipidemia and paranoid schizophrenia, who is medically cleared from [facility]. The patient is now here at the [facility]. PAST MEDICAL HISTORY: As mentioned in present illness. PAST SURGICAL HISTORY: Unknown. ALLERGIES: No known allergies. FAMILY HISTORY: Noncontributory. REVIEW OF SYSTEMS: GENERAL: Denies any fever or chills. CARDIOVASCULAR: Denies chest pain. RESPIRATORY: Denies shortness of breath. GASTROINTESTINAL: Denies nausea, vomiting, abdominal pain. GENITOURINARY: Denies increased frequency or dysuria. NEUROLOGIC: No headaches, seizure or syncope. All other systems reviewed and negative. PHYSICAL EXAMINATION: GENERAL: Elderly male, awake, alert with some confusion. No apparent distress. VITAL SIGNS: Currently being taken. HEENT: Head; normocephalic, atraumatic. NECK: Supple. No mass. LUNGS: Clear bilaterally. ABDOMEN: Soft, nontender. ASSESSMENT: Parkinson's, type 2 diabetes, hypertension, history of glaucoma, dementia, hyperlipidemia and paranoid schizophrenia. PLAN: We will continue the patient's home medications. Monitor the patient's glucose closely. Fall precautions will be initiated. We will continue to monitor this patient. [facility]# [id number]
[2019-08-29] MEDS: INSULIN LISPRO SLIDING SCALE 100 UNITS/ML UNIT SUBQ SCH ×2 (17:27→20:52)
[2019-08-29] MEDS: Oxybutynin Chloride 5 mg ER Tab PO SCH (20:52)
[2019-08-30] MEDS: INSULIN LISPRO SLIDING SCALE 100 UNITS/ML UNIT SUBQ SCH ×4 (06:41→20:42)
[2019-08-30] MEDS ORDERED: RASAGILINE MESYLATE 1 MG PO SCH (09:00)
--- NOTE | 2019-08-30 09:50 | Psychiatric Evaluation ---
DATE OF SERVICE: AGE: 75. SEX: Male. PHYSICIAN: Dr. Lees. CHIEF COMPLAINT: Confusion and agitation. HISTORY OF PRESENT ILLNESS: The patient is a 69-year-old male who is living in [facility]. The patient has been confused and anxious and also had episodes of aggressive behavior. The patient also has been actively hallucinating and has been talking to himself with difficulty following any of staff directions. The patient also has been agitated at times, especially when helping him with his ADLs. The patient is still confused. Also, was not able to tell me age or even his date. He also has been restless. PAST PSYCHIATRIC HISTORY: The patient has history of schizophrenia. PAST MEDICAL HISTORY: The patient has Parkinson's disease as well as non-insulin dependent diabetes mellitus and generalized weakness and glaucoma and hyperlipidemia. SOCIAL HISTORY: The patient lives in [facility]. No known alcohol or drug use. No known legal issues. ALLERGIES: No known allergies. MENTAL STATUS EXAMINATION: The patient appears older than his stated age. Anxious. Rambling. Unable to answer any of the questions coherently. The patient also prior to my evaluation was wandering around the unit. The patient did not answer questions regarding hallucinations or delusions, but actively responding to stimuli. The patient did not answer questions regarding suicide or homicide. The patient is alert, but seems to be disoriented to time, place, person, and situation. Impaired immediate, recent and remote memories and the patient was not able to tell me even his date. Poor insight and judgment. Poor attention and concentration ASSESSMENT: PRIMARY DIAGNOSIS: Schizophrenic disorder by history, unspecified. MEDICAL DIAGNOSES: 1. Parkinson disease. 2. Noninsulin dependent diabetes mellitus. 3. Hyperlipidemia. TREATMENT PLAN: We will monitor the patient's behavior and condition closely. Also, we will continue Depakote and Seroquel, but we will increase Seroquel dose to 25 mg twice a day and will adjust the dose. Also, we will continue to work on behavioral modification. ESTIMATED LENGTH OF STAY: 5-7 days. PATIENT'S STRENGTHENS AND WEAKNESSES: The patient has supportive staff and people in the halfway. Weakness is his poor memory and his poor impulse control and ineffective coping. AFTER DISCHARGE PLAN: Outpatient treatment and followup will continue as an outpatient. CRITERIA FOR DISCHARGE: The patient will not be psychotic and will stabilize psychotropic medications and will establish outpatient treatment plans. JOB# [id number]
--- NOTE | 2019-08-30 18:38 | Internal Medicine Prog Note ---
Internal Medicine Subjective - Subjective Service Date: 08/30/19 Patient seen and examined:: with staff Patient is:: awake Per staff patient has:: tolerating meds Internal Medicine Objective - Results Recent Labs: Laboratory Last Values POC Glucose 139 MG/DL (70 - 105) H 08/30/19 17:00 - Physical Exam Vitals and I&O: Vital Signs Temp 97.8 F 08/30/19 14:00 Pulse 66 08/30/19 14:00 Resp 18 08/30/19 14:00 BP 140/77 08/30/19 14:00 Pulse Ox 98 08/30/19 14:00 Intake & Output 08/29/19 08/30/19 08/30/19 18:59 06:59 18:59 Intake Total 700 240 840 Balance 700 240 840 Weight (lbs) 165 lb Intake: Oral 700 240 840 Other: # Voids 2 2 3 # Bowel Movements 0 0 0 Weight Source Bedscale Active Medications: Current Medications Acetaminophen (Tylenol) 650 mg PO Q4H PRN PRN Reason: Pain (Mild 1-3) Al Hydrox/Mg Hydrox/Simethicone (Maalox) 30 ml PO Q4HR PRN PRN Reason: GI DISTRESS Stop: 10/28/19 11:22 Bisacodyl (Dulcolax 10 Mg Supp) 10 mg RC DAILY PRN PRN Reason: Constipation Stop: 10/28/19 11:22 Brimonidine Tartrate (Alphagan 0.15% Oph Soln) 1 drop EACH EYE TID [facility] Stop: 10/28/19 13:59 Last Admin: 08/30/19 13:33 Dose: 1 drop Calcium Carbonate (Tums) 500 mg PO Q6H PRN PRN Reason: Indigestion Stop: 10/28/19 11:22 Carvedilol (Coreg) 12.5 mg PO DAILY [facility] Stop: 10/29/19 08:59 Last Admin: 08/30/19 08:35 Dose: 12.5 mg Clopidogrel Bisulfate (Plavix) 75 mg PO DAILY [facility] Stop: 10/29/19 08:59 Last Admin: 08/30/19 08:35 Dose: 75 mg Dextrose (Glutose 40%) 37.5 gm PO PRN PRN PRN Reason: BS Below 70 if tolerate po Stop: 10/28/19 11:22 Docusate Sodium (Colace) 250 mg PO BID [facility] Stop: 10/28/19 16:59 Last Admin: 08/30/19 16:43 Dose: 250 mg Dorzolamide HCl (Trusopt 2% Ophth Soln) 1 drop EACH EYE BID [facility] Stop: 10/28/19 16:59 Last Admin: 08/30/19 17:27 Dose: 1 drop Entacapone (Comtan) 200 mg PO TID [facility] Stop: 10/28/19 13:59 Last Admin: 08/30/19 13:35 Dose: 200 mg Guaifenesin/Dextromethorphan (Robitussin Dm) 10 ml PO Q6HR PRN PRN Reason: Cough Stop: 10/28/19 11:22 Insulin Human Lispro (Humalog Insulin Sliding Scale) 0 units SUBQ ACHS [facility]; Protocol Stop: 10/28/19 16:29 Last Admin: 08/30/19 17:07 Dose: Not Given Isosorbide Dinitrate (Isordil) 5 mg PO DAILY [facility] Stop: 10/29/19 08:59 Last Admin: 08/30/19 08:36 Dose: 5 mg Lorazepam (Ativan) 0.5 mg PO Q4HR PRN; Protocol PRN Reason: Anxiety Stop: 10/28/19 11:22 Magnesium Oxide (Mag-Oxide) 400 mg PO BID [facility] Stop: 10/28/19 16:59 Last Admin: 08/30/19 16:43 Dose: 400 mg Miscellaneous (Rasagiline Mesylate [Azilect]) 1 mg PO DAILY [facility] Stop: 10/29/19 08:59 Oxybutynin Chloride (Ditropan Xl) 10 mg PO HS [facility] Stop: 10/28/19 20:59 Last Admin: 08/29/19 20:52 Dose: 10 mg Pioglitazone HCl (Actos) 15 mg PO DAILY [facility] Stop: 10/29/19 08:59 Last Admin: 08/30/19 08:37 Dose: 15 mg Quetiapine Fumarate (Seroquel) 25 mg PO BID [facility]; Protocol Stop: 10/29/19 08:59 Last Admin: 08/30/19 16:43 Dose: 25 mg Tramadol HCl (Ultram) 50 mg PO HS PRN PRN Reason: Pain (Severe 7-10) Stop: 10/28/19 11:22 Valproate Sodium (Depakene) 500 mg PO BID [facility]; Protocol Stop: 10/29/19 09:59 Last Admin: 08/30/19 16:43 Dose: 500 mg Zolpidem Tartrate (Ambien) 5 mg PO HS PRN PRN Reason: Insomnia Stop: 10/28/19 11:22 General: alert HEENT: NC/AT, PERRLA Neck: Supple Lungs: CTAB Cardiovascular: RRR, Normal S1, Normal S2, without murmur Abdomen: soft, non-tender, non-distended Internal Medicine Assmt/Plan - Assessment Assessment: parkinson's dm2 htn hx glaucoma dementia hyperlipidemia paranoid schizophrenia - Plan Plan: monitor glucose fall precautions cpm
[2019-08-30] MEDS: Oxybutynin Chloride 5 mg ER Tab PO SCH (20:33)
[2019-08-31] MEDS: INSULIN LISPRO SLIDING SCALE 100 UNITS/ML UNIT SUBQ SCH ×4 (06:30→22:05)
--- NOTE | 2019-08-31 18:12 | Internal Medicine Prog Note ---
Internal Medicine Subjective - Subjective Service Date: 08/31/19 Patient is:: awake Per staff patient has:: tolerating meds Internal Medicine Objective - Results Recent Labs: Laboratory Last Values POC Glucose 99 MG/DL (70 - 105) 08/31/19 17:21 - Physical Exam Vitals and I&O: Vital Signs Temp 97.1 F 08/31/19 14:00 Pulse 85 08/31/19 14:00 Resp 19 08/31/19 14:00 BP 119/77 08/31/19 14:00 Pulse Ox 97 08/31/19 14:00 Intake & Output 08/30/19 08/31/19 08/31/19 18:59 06:59 18:59 Intake Total 840 360 Output Total 1 Balance 840 359 Intake: Oral 840 360 Output: Urine/Stool Mix 1 Other: # Voids 3 1 # Bowel Movements 0 1 Active Medications: Current Medications Acetaminophen (Tylenol) 650 mg PO Q4H PRN PRN Reason: Pain (Mild 1-3) Al Hydrox/Mg Hydrox/Simethicone (Maalox) 30 ml PO Q4HR PRN PRN Reason: GI DISTRESS Stop: 10/28/19 11:22 Bisacodyl (Dulcolax 10 Mg Supp) 10 mg RC DAILY PRN PRN Reason: Constipation Stop: 10/28/19 11:22 Brimonidine Tartrate (Alphagan 0.15% Ophth Soln) 1 drop EACH EYE TID [facility] Stop: 10/28/19 13:59 Last Admin: 08/31/19 13:35 Dose: 1 drop Calcium Carbonate (Tums) 500 mg PO Q6H PRN PRN Reason: Indigestion Stop: 10/28/19 11:22 Carvedilol (Coreg) 12.5 mg PO DAILY [facility] Stop: 10/29/19 08:59 Last Admin: 08/31/19 09:42 Dose: 12.5 mg Clopidogrel Bisulfate (Plavix) 75 mg PO DAILY [facility] Stop: 10/29/19 08:59 Last Admin: 08/31/19 09:39 Dose: 75 mg Dextrose (Glutose 40%) 37.5 gm PO PRN PRN PRN Reason: BS Below 70 if tolerate po Stop: 10/28/19 11:22 Docusate Sodium (Colace) 250 mg PO BID [facility] Stop: 10/28/19 16:59 Last Admin: 08/31/19 16:59 Dose: 250 mg Dorzolamide HCl (Trusopt 2% Ophth Soln) 1 drop EACH EYE BID [facility] Stop: 10/28/19 16:59 Last Admin: 08/31/19 16:57 Dose: 1 drop Entacapone (Comtan) 200 mg PO TID [facility] Stop: 10/28/19 13:59 Last Admin: 08/31/19 13:35 Dose: 200 mg Guaifenesin/Dextromethorphan (Robitussin Dm) 10 ml PO Q6HR PRN PRN Reason: Cough Stop: 10/28/19 11:22 Insulin Human Lispro (Humalog Insulin Sliding Scale) 0 units SUBQ ACHS [facility]; Protocol Stop: 10/28/19 16:29 Last Admin: 08/31/19 11:45 Dose: Not Given Isosorbide Dinitrate (Isordil) 5 mg PO DAILY [facility] Stop: 10/29/19 08:59 Last Admin: 08/31/19 09:39 Dose: 5 mg Lorazepam (Ativan) 0.5 mg PO Q4HR PRN; Protocol PRN Reason: Anxiety Stop: 10/28/19 11:22 Magnesium Oxide (Mag-Oxide) 400 mg PO BID [facility] Stop: 10/28/19 16:59 Last Admin: 08/31/19 16:59 Dose: 400 mg Miscellaneous (Rasagiline Mesylate [Azilect]) 1 mg PO DAILY [facility] Stop: 10/29/19 08:59 Oxybutynin Chloride (Ditropan Xl) 10 mg PO HS [facility] Stop: 10/28/19 20:59 Last Admin: 08/30/19 20:33 Dose: 10 mg Pioglitazone HCl (Actos) 15 mg PO DAILY [facility] Stop: 10/29/19 08:59 Last Admin: 08/31/19 09:42 Dose: 15 mg Quetiapine Fumarate (Seroquel) 25 mg PO BID [facility]; Protocol Stop: 10/29/19 08:59 Last Admin: 08/31/19 16:59 Dose: 25 mg Tramadol HCl (Ultram) 50 mg PO HS PRN PRN Reason: Pain (Severe 7-10) Stop: 10/28/19 11:22 Valproate Sodium (Depakene) 500 mg PO BID [facility]; Protocol Stop: 10/29/19 09:59 Last Admin: 08/31/19 16:59 Dose: 500 mg Zolpidem Tartrate (Ambien) 5 mg PO HS PRN PRN Reason: Insomnia Stop: 10/28/19 11:22 General: alert HEENT: NC/AT, PERRLA Neck: Supple Lungs: CTAB Cardiovascular: RRR, Normal S1, Normal S2, without murmur Abdomen: soft, non-tender, non-distended Internal Medicine Assmt/Plan - Assessment Assessment: parkinson's dm2 htn hx glaucoma dementia hyperlipidemia paranoid schizophrenia - Plan Plan: monitor glucose fall precautions cpm Nutritional Asmnt/Malnutr-PDOC - Dietary Evaluation Malnutrition Findings (Please click <Entered> for more info): Nutritional Asmnt/Malnutrition Start: 08/31/19 12: 26 Text: Status: Complete Freq: Protocol: Document 08/31/19 12:26 OMKAR (Rec: 08/31/19 12:29 OMKAR [email or web address]) Nutritional Asmnt/Malnutrition Patient General Information Nutritional Screening Moderate Risk Diagnosis Psychosis Pertinent Medical Hx/Surgical Hx Parkinsons disease, type 2 diabetes, HTN, glaucoma, dementia, hyperlipidemia, and paranoid schizophrenia Subjective Information Pt is a 69-year-old male admitted on 08/28 d/t confusion and agitation. Pt is eating <50% (x1 day), therefore not recommending renal diet modification at this time of meals. Per nursing notes (08/29) ate 100% snacks, but patient with poor appetite. Patient only ate 25% meals today. Spoke to BIOINFORMATICS TECHNICIAN Marty this morning, he advised pt. drank milk and ate 50% of breakfast. Pt. told BIOINFORMATICS TECHNICIAN that he did not have much of an appetite. Will continue to monitor pt. PO intake and nutritional supplement if needed. Notified pt nurse of renal labs, nurse stated she will monitor urine output. Anthropometrics HT: 58 WT: 165 LB (75.00 kg) BMI: 25.08 (Overweight) GI/ Skin Integrity GI: WNL, Flat, Soft BM: 08/30 x1 I/O: 1200/Not Noted Skin: WNL, None/ Intact Ancelmo: 18 Diet Order: Cardiac, Msoft, PIO, CCHO 60gms, Clear Liquid Estimated Energy Needs: ( Geriatric, CBW) 8260-4923 kcals (25-30 kcals/ kg) 60-67g Pro (0.8-0.9 g/kg) 2215-4767 ml (25-30 ml/kg Current Diet Order/ Nutrition Support Cardiac, Msoft, PIO, CCHO 60gms, Clear Liquid Pertinent Medications Maalox (PRN), Dulcolax 10Mg Supp, Tums, Glutose 40%, Colace, Humalog Ins-S Pertinent Labs 08/30: Glucose POC (last 24hrs) 105, 139 08/28: Glucose 125, Calcium 8.3 , BUN 44, Cr 2.07, GFR 30 Nutritional Hx/Data Height 5 ft 8 in Height (Calculated Centimeters) 172.7 Current Weight (lbs) 165 lb Weight (Calculated Kilograms) 74.8 Weight (Calculated Grams) 31351.7 [place] Body Weight 154 % [place] Body Weight 107 Body Mass Index (BMI) 25.0 Weight Status Overweight GI Symptoms Last BM 08/30 x1 Skin Integrity/Comment: Skin: WNL, None/ Intact Ancelmo: 18 Current %PO Poor (25-49%) Estimated Nutritional Goals BEE in Kcals: Using Current wt Calories/Kcals/Kg 25-30 Kcals Calculated 6126-8749 Protein: Using Current wt Protein g/k.8-0.9 Protein Calculated 60-67 Fluid: ml 9501-7758 ml (25-30 ml/kg) Nutritional Problem 1. Problem Problem Inadequate oral intake Etiology r/t consistent underconsumption of energy Signs/Symptoms: aeb. Nursing notes, ate 100% snacks, but patient with poor appetite. Patient only ate 25% meals today. and recorded PO intake <50% per Per Meal/ Nutrition Activity Record. Malnutrition Related to Morbid Obesity Malnutrition related to morbid obesity No Intervention/Recommendation Comments 1.Continue Cardiac, Msoft, PIO , CCHO 60gms, Clear Liquid as tolerated by pt. Expected Outcomes/Goals Expected Outcomes/Goals 1. PO intake to meet 75% of estimated nutritional needs. 2. Monitor PO intake, wt, nutrition related labs to trend WNL, and skin integrity. 3. F/U as moderate risk in 3-5 days, 09/02-09/04
--- NOTE | 2019-08-31 20:21 | Progress Notes ---
DATE: 08/31/2019 SUBJECTIVE: Chart was reviewed and the patient interviewed. Also discussed the patient's condition with the staff and reviewed records and labs. The patient is still agitated and confused. Also, during interview, the patient was pointing out to his back and it is not clear if he was complaining of back pain or of itching. Staff would not even tell as well as myself. He still needs lots of redirections, but seems easier to redirect. Also, the patient still needs close observation. The patient is unkempt. He also is restless and is still agitated. TREATMENT PLAN: Continue to monitor behavior and condition closely. Also, continue adjusting psychotropic medications and working on behavioral modification. Also, Depakote blood level is pending. [facility]# [id number]
[2019-08-31] MEDS: Oxybutynin Chloride 5 mg ER Tab PO SCH (20:53)
[2019-09-01] MEDS: INSULIN LISPRO SLIDING SCALE 100 UNITS/ML UNIT SUBQ SCH ×4 (06:48→21:57)
--- NOTE | 2019-09-01 07:19 | Progress Notes ---
DATE: 09/01/2019 SUBJECTIVE: The patient was seen in his room. The patient is asleep, but easily arousable. The patient appears to be guarded, suspicious, easily gets frustrated, poor impulse control. Otherwise, the patient appears to be in no acute distress. OBJECTIVE: VITAL SIGNS: Temperature 97.8, heart rate 61, blood pressure 134/73, respirations 20, 97% on room air. HEENT: Head is atraumatic and normocephalic. Eyes: Bilateral conjunctivae are clear. Bilateral pupils equal, round, reactive. NECK: Supple. No JVD. CARDIOVASCULAR: S1, S2, without murmur. PULMONARY: Clear to auscultation. GASTROINTESTINAL: Soft and nontender without guarding. Positive bowel sounds. MUSCULOSKELETAL: No clubbing. No cyanosis noted. ASSESSMENT: 1. Schizophrenia. 2. Dementia. 3. Parkinson's disease. 4. Diabetes. 5. Hyperlipidemia. 6. Hypertension. 7. History of glaucoma. PLAN: We will continue to keep the patient to inpatient Psychiatric Unit. We will follow up with a psychiatrist to monitor the patient's condition and behavior. Treatment plans were discussed with the patient's nurse. Treatment plans were discussed with Dr. Beard. JOB# [id number]
[2019-09-01] MEDS: Oxybutynin Chloride 5 mg ER Tab PO SCH (20:32)
--- NOTE | 2019-09-02 02:50 | Progress Notes ---
DATE: 09/01/[address] Lees. IDENTIFYING DATA: A 69-year-old male coming from [facility], presenting confused, anxious and aggressive behavior. In the hospital course, the patient has been started on Coreg, Plavix, Colace, Seroquel 25 mg p.o. b.i.d., Ultram and Depakote. LABS: CMP, CBC, urine tox negative. U-tox negative. RPR negative. Pending Depakote levels. Today on trfm-hr-bocc evaluation, still easily agitated upon interview, ____ his mouth, difficult to redirect. EXAMINATION: Unkempt, restless, anxious and easily agitated. ASSESSMENT AND PLAN: We will continue monitoring the recent adjustments of medications with pending Depakote levels. JOB# [id number]
[2019-09-02] MEDS: INSULIN LISPRO SLIDING SCALE 100 UNITS/ML UNIT SUBQ SCH ×4 (06:51→20:44)
--- NOTE | 2019-09-02 18:19 | Progress Notes ---
DATE: 09/02/2019 SUBJECTIVE: The patient was seen and evaluated. The patient's chart reviewed. Covering for Dr. Lees. Today on [id number] evaluation, is avoiding, does not respond to asking questions. He is either open, ____ just blinks and disengage. ASSESSMENT AND PLAN: A 69-year-old male with dementia, behavior disturbances, who continues to need a lot of redirection to maintain simple conversation. We will continue with the Seroquel as he continues to reach steady state. JOB# [id number]
[2019-09-02] MEDS: Oxybutynin Chloride 5 mg ER Tab PO SCH (20:43)
--- NOTE | 2019-09-02 21:16 | Internal Medicine Prog Note ---
Internal Medicine Subjective - Subjective Patient is:: asleep, in bed Per staff patient has:: no adverse event, no episodes of fall, tolerating meds, other (slept all day) Internal Medicine Objective - Results Recent Labs: Laboratory Last Values POC Glucose 140 MG/DL (70 - 105) H 09/02/19 20:29 - Physical Exam Vitals and I&O: Vital Signs Temp 97.8 F 09/02/19 20:00 Pulse 63 09/02/19 20:00 Resp 19 09/02/19 20:00 BP 121/63 09/02/19 20:00 Pulse Ox 98 09/02/19 20:00 Intake & Output 09/02/19 09/02/19 09/03/19 06:59 18:59 06:59 Intake Total 300 Output Total 1 Balance 299 Intake: Oral 300 Output: Urine/Stool Mix 1 Other: # Voids 1 # Bowel Movements 0 Active Medications: Current Medications Acetaminophen (Tylenol) 650 mg PO Q4H PRN PRN Reason: Pain (Mild 1-3) Al Hydrox/Mg Hydrox/Simethicone (Maalox) 30 ml PO Q4HR PRN PRN Reason: GI DISTRESS Stop: 10/28/19 11:22 Bisacodyl (Dulcolax 10 Mg Supp) 10 mg RC DAILY PRN PRN Reason: Constipation Stop: 10/28/19 11:22 Brimonidine Tartrate (Alphagan 0.15% Oph Soln) 1 drop EACH EYE TID [facility] Stop: 10/28/19 13:59 Last Admin: 09/02/19 20:43 Dose: 1 drop Calcium Carbonate (Tums) 500 mg PO Q6H PRN PRN Reason: Indigestion Stop: 10/28/19 11:22 Carvedilol (Coreg) 12.5 mg PO DAILY [facility] Stop: 10/29/19 08:59 Last Admin: 09/02/19 09:13 Dose: 12.5 mg Clopidogrel Bisulfate (Plavix) 75 mg PO DAILY [facility] Stop: 10/29/19 08:59 Last Admin: 09/02/19 09:14 Dose: 75 mg Dextrose (Glutose 40%) 37.5 gm PO PRN PRN PRN Reason: BS Below 70 if tolerate po Stop: 10/28/19 11:22 Docusate Sodium (Colace) 250 mg PO BID [facility] Stop: 10/28/19 16:59 Last Admin: 09/02/19 17:07 Dose: 250 mg Dorzolamide HCl (Trusopt 2% Ophth Soln) 1 drop EACH EYE BID [facility] Stop: 10/28/19 16:59 Last Admin: 09/02/19 17:07 Dose: 1 drop Entacapone (Comtan) 200 mg PO TID [facility] Stop: 10/28/19 13:59 Last Admin: 09/02/19 20:44 Dose: 200 mg Guaifenesin/Dextromethorphan (Robitussin Dm) 10 ml PO Q6HR PRN PRN Reason: Cough Stop: 10/28/19 11:22 Insulin Human Lispro (Humalog Insulin Sliding Scale) 0 units SUBQ ACHS [facility]; Protocol Stop: 10/28/19 16:29 Last Admin: 09/02/19 20:44 Dose: Not Given Isosorbide Dinitrate (Isordil) 5 mg PO DAILY [facility] Stop: 10/29/19 08:59 Last Admin: 09/02/19 09:10 Dose: 5 mg Lorazepam (Ativan) 0.5 mg PO Q4HR PRN; Protocol PRN Reason: Anxiety Stop: 10/28/19 11:22 Magnesium Oxide (Mag-Oxide) 400 mg PO BID [facility] Stop: 10/28/19 16:59 Last Admin: 09/02/19 17:07 Dose: 400 mg Miscellaneous (Rasagiline Mesylate [Azilect]) 1 mg PO DAILY [facility] Stop: 10/29/19 08:59 Oxybutynin Chloride (Ditropan Xl) 10 mg PO HS [facility] Stop: 10/28/19 20:59 Last Admin: 09/02/19 20:43 Dose: 10 mg Pioglitazone HCl (Actos) 15 mg PO DAILY [facility] Stop: 10/29/19 08:59 Last Admin: 09/02/19 09:13 Dose: 15 mg Quetiapine Fumarate (Seroquel) 25 mg PO BID [facility]; Protocol Stop: 10/29/19 08:59 Last Admin: 09/02/19 17:07 Dose: 25 mg Tramadol HCl (Ultram) 50 mg PO HS PRN PRN Reason: Pain (Severe 7-10) Stop: 10/28/19 11:22 Valproate Sodium (Depakene) 500 mg PO BID [facility]; Protocol Stop: 10/29/19 09:59 Last Admin: 09/02/19 17:06 Dose: 500 mg Zolpidem Tartrate (Ambien) 5 mg PO HS PRN PRN Reason: Insomnia Stop: 10/28/19 11:22 Last Admin: 09/01/19 22:30 Dose: 5 mg General: alert, NAD HEENT: NC/AT, PERRLA Neck: Supple Lungs: CTAB Cardiovascular: RRR, Normal S1, Normal S2 Abdomen: soft, non-tender, non-distended Extremities: clear Internal Medicine Assmt/Plan - Assessment Assessment: Schizophrenia Dementia Parkinson's disease DM Hyperlipidemia HTN Hx of glaucoma - Plan Plan: Continue current managements Monitor VS Monitor Labs Psych management per Psych Pain managment as needed. Monitor nutritional needs. Fall Precaution Continue collaboration with interdisciplinary team. Nutritional Asmnt/Malnutr-PDOC - Dietary Evaluation Malnutrition Findings (Please click <Entered> for more info): Nutritional Asmnt/Malnutrition Start: 08/31/19 12: 26 Text: Status: Complete Freq: Protocol: Document 08/31/19 12:26 OMKAR (Rec: 08/31/19 12:29 OMKAR [email or web address]) Nutritional Asmnt/Malnutrition Patient General Information Nutritional Screening Moderate Risk Diagnosis Psychosis Pertinent Medical Hx/Surgical Hx Parkinsons disease, type 2 diabetes, HTN, glaucoma, dementia, hyperlipidemia, and paranoid schizophrenia Subjective Information Pt is a 69-year-old male admitted on 08/28 d/t confusion and agitation. Pt is eating <50% (x1 day), therefore not recommending renal diet modification at this time of meals. Per nursing notes (08/29) ate 100% snacks, but patient with poor appetite. Patient only ate 25% meals today. Spoke to KIRBY Ferguson this morning, he advised pt. drank milk and ate 50% of breakfast. Pt. told MULTIMEDIA ASSISTANT that he did not have much of an appetite. Will continue to monitor pt. PO intake and nutritional supplement if needed. Notified pt nurse of renal labs, nurse stated she will monitor urine output. Anthropometrics HT: 58 WT: 165 LB (75.00 kg) BMI: 25.08 (Overweight) GI/ Skin Integrity GI: WNL, Flat, Soft BM: 08/30 x1 I/O: 1200/Not Noted Skin: WNL, None/ Intact Ancelmo: 18 Diet Order: Cardiac, Msoft, PIO, CCHO 60gms, Clear Liquid Estimated Energy Needs: ( Geriatric, CBW) 9356-6242 kcals (25-30 kcals/ kg) 60-67g Pro (0.8-0.9 g/kg) 1176-7386 ml (25-30 ml/kg Current Diet Order/ Nutrition Support Cardiac, Msoft, PIO, CCHO 60gms, Clear Liquid Pertinent Medications Maalox (PRN), Dulcolax 10Mg Supp, Tums, Glutose 40%, Colace, Humalog Ins-S Pertinent Labs 08/30: Glucose POC (last 24hrs) 105, 139 08/28: Glucose 125, Calcium 8.3 , BUN 44, Cr 2.07, GFR 30 Nutritional Hx/Data Height 5 ft 8 in Height (Calculated Centimeters) 172.7 Current Weight (lbs) 165 lb Weight (Calculated Kilograms) 74.8 Weight (Calculated Grams) 06308.7 Zullinger Body Weight 154 % Zullinger Body Weight 107 Body Mass Index (BMI) 25.0 Weight Status Overweight GI Symptoms Last BM 08/30 x1 Skin Integrity/Comment: Skin: WNL, None/ Intact Ancelmo: 18 Current %PO Poor (25-49%) Estimated Nutritional Goals BEE in Kcals: Using Current wt Calories/Kcals/Kg 25-30 Kcals Calculated 6186-2152 Protein: Using Current wt Protein g/k.8-0.9 Protein Calculated 60-67 Fluid: ml 3065-2032 ml (25-30 ml/kg) Nutritional Problem 1. Problem Problem Inadequate oral intake Etiology r/t consistent underconsumption of energy Signs/Symptoms: aeb. Nursing notes, ate 100% snacks, but patient with poor appetite. Patient only ate 25% meals today. and recorded PO intake <50% per Per Meal/ Nutrition Activity Record. Malnutrition Related to Morbid Obesity Malnutrition related to morbid obesity No Intervention/Recommendation Comments 1.Continue Cardiac, Msoft, PIO , CCHO 60gms, Clear Liquid as tolerated by pt. Expected Outcomes/Goals Expected Outcomes/Goals 1. PO intake to meet 75% of estimated nutritional needs. 2. Monitor PO intake, wt, nutrition related labs to trend WNL, and skin integrity. 3. F/U as moderate risk in 3-5 days, 09/02-09/04
[2019-09-03] MEDS: INSULIN LISPRO SLIDING SCALE 100 UNITS/ML UNIT SUBQ SCH ×4 (06:46→20:57)
--- NOTE | 2019-09-03 08:40 | Progress Notes ---
DATE: SUBJECTIVE: Chart was reviewed and the patient interviewed. Also discussed the patient's condition with the staff and reviewed records and labs. The patient is still agitated and is still in irritable mood. The patient also is still having episodes of aggression and needs lots of redirections. Also, still paranoid and suspicious. The patient also is still at times pacing around in a confused state. Otherwise, patient wants to be left alone at times. The patient's gait is steady and vital signs are stable and no new labs available for review. TREATMENT PLAN: Continue to monitor behavior and condition closely. Also, we will increase Seroquel to 37.5 mg twice a day. Also, continue to work on his irritability. MENTAL STATUS EXAMINATION: Disheveled. Anxious. Preoccupied. Seems to be actively responding. TREATMENT PLAN: We will continue to monitor behavior and condition closely. Also, we will get a Depakote blood level. Also, we will increase Seroquel to 37.5 mg twice a day and we will continue to follow up closely. Also, we will get a Depakote blood level. JOB# [id number]
[2019-09-03] MEDS: Oxybutynin Chloride 5 mg ER Tab PO SCH (20:58)
[2019-09-04] MEDS: INSULIN LISPRO SLIDING SCALE 100 UNITS/ML UNIT SUBQ SCH ×5 (06:43→21:12)
--- NOTE | 2019-09-04 07:41 | Progress Notes ---
DATE: 09/04/2019 SUBJECTIVE: Chart was reviewed and the patient interviewed. Also discussed the patient's condition with the staff and reviewed records and labs. The patient is still in a depressed mood and the patient is still anxious. The patient also is still feeling hopeless and is still isolative and withdrawn with minimum interaction. The patient also denies any hallucinations, but still seems to be paranoid and preoccupied. The patient also has difficulty expressing himself and he needs lots of redirections. Otherwise, the patient is compliant with taking his medications with no side effects of medications. The patient's gait is steady and vital signs are stable and no new labs available for review. MENTAL STATUS EXAMINATION: Anxious. Unkempt. Personal hygiene is poor. Has poor eye contact. Low tone and rate of speech. ASSESSMENT: The patient is still psychotic and still needs close monitoring. TREATMENT PLAN: Continue to monitor behavior and condition closely. Also, continue adjusting psychotropic medications and continue to followup. REASON TO CONTINUE HOSPITAL STAY: The patient is still psychotic and needs close monitoring. JOB# [id number]
[2019-09-04] MEDS: Oxybutynin Chloride 5 mg ER Tab PO SCH ×2 (20:56→21:10)
[2019-09-05] MEDS: INSULIN LISPRO SLIDING SCALE 100 UNITS/ML UNIT SUBQ SCH ×4 (06:54→21:00)
--- NOTE | 2019-09-05 07:43 | Progress Notes ---
DATE: 09/05/2019 SUBJECTIVE: Chart was reviewed and the patient interviewed. Also discussed the patient's condition with the staff and reviewed records and labs. The patient still had episodes of irritability and anger, but decreased yelling and screaming episodes. The patient is also slow to respond and still has difficulty expressing himself and his feelings. Also, slightly easier to redirect him. Otherwise, the patient continues to comply with taking his medications with no side effects of medications. Vital signs are stable and no new labs are available for review. The patient also stays in his bed most of the time. MENTAL STATUS EXAMINATION: Unkempt. Cooperative. Low tone and rate of speech and slow to respond to questions. Seems to be preoccupied. ASSESSMENT: The patient still has mood swings and still has episodes of agitation. TREATMENT PLAN: We will continue to monitor the patient's condition and medications. Also, we will continue adjusting psychotropic medications. Also, Depakote blood level is still pending. ESTIMATED LENGTH OF STAY: 1-3 days. REASON TO CONTINUE HOSPITAL STAY: The patient is still agitated and restless. Slow to respond and still needs adjustment to his medications. JOB# [id number]
--- NOTE | 2019-09-05 17:33 | Internal Medicine Prog Note ---
Internal Medicine Subjective - Subjective Service Date: 09/05/19 Patient is:: asleep, in bed Per staff patient has:: no adverse event, no episodes of fall, tolerating meds, other (slept all day) Internal Medicine Objective - Results Recent Labs: Laboratory Last Values POC Glucose 144 MG/DL (70 - 105) H 09/05/19 11:51 - Physical Exam Vitals and I&O: Vital Signs Temp 98.1 F 09/05/19 14:00 Pulse 78 09/05/19 14:00 Resp 20 09/05/19 14:00 BP 101/59 09/05/19 14:00 Pulse Ox 94 09/05/19 14:00 Intake & Output 09/04/19 09/05/19 09/05/19 18:59 06:59 18:59 Intake Total 120 Balance 120 Intake: Oral 120 Other: # Voids 3 # Bowel Movements 0 Active Medications: Current Medications Acetaminophen (Tylenol) 650 mg PO Q4H PRN PRN Reason: Pain (Mild 1-3) Al Hydrox/Mg Hydrox/Simethicone (Maalox) 30 ml PO Q4HR PRN PRN Reason: GI DISTRESS Stop: 10/28/19 11:22 Bisacodyl (Dulcolax 10 Mg Supp) 10 mg RC DAILY PRN PRN Reason: Constipation Stop: 10/28/19 11:22 Brimonidine Tartrate (Alphagan 0.15% Ophth Soln) 1 drop EACH EYE TID [facility] Stop: 10/28/19 13:59 Last Admin: 09/05/19 14:38 Dose: 1 drop Calcium Carbonate (Tums) 500 mg PO Q6H PRN PRN Reason: Indigestion Stop: 10/28/19 11:22 Carvedilol (Coreg) 12.5 mg PO DAILY [facility] Stop: 10/29/19 08:59 Last Admin: 09/05/19 08:42 Dose: 12.5 mg Clopidogrel Bisulfate (Plavix) 75 mg PO DAILY [facility] Stop: 10/29/19 08:59 Last Admin: 09/05/19 08:40 Dose: 75 mg Dextrose (Glutose 40%) 37.5 gm PO PRN PRN PRN Reason: BS Below 70 if tolerate po Stop: 10/28/19 11:22 Docusate Sodium (Colace) 250 mg PO BID [facility] Stop: 10/28/19 16:59 Last Admin: 09/05/19 16:45 Dose: 250 mg Dorzolamide HCl (Trusopt 2% Ophth Soln) 1 drop EACH EYE BID [facility] Stop: 10/28/19 16:59 Last Admin: 09/05/19 17:14 Dose: 1 drop Entacapone (Comtan) 200 mg PO TID [facility] Stop: 10/28/19 13:59 Last Admin: 09/05/19 13:42 Dose: 200 mg Guaifenesin/Dextromethorphan (Robitussin Dm) 10 ml PO Q6HR PRN PRN Reason: Cough Stop: 10/28/19 11:22 Insulin Human Lispro (Humalog Insulin Sliding Scale) 0 units SUBQ ACHS [facility]; Protocol Stop: 10/28/19 16:29 Last Admin: 09/05/19 16:57 Dose: Not Given Isosorbide Dinitrate (Isordil) 5 mg PO DAILY [facility] Stop: 10/29/19 08:59 Last Admin: 09/05/19 08:41 Dose: 5 mg Lorazepam (Ativan) 0.5 mg PO Q4HR PRN; Protocol PRN Reason: Anxiety Stop: 10/28/19 11:22 Magnesium Oxide (Mag-Oxide) 400 mg PO BID [facility] Stop: 10/28/19 16:59 Last Admin: 09/05/19 16:45 Dose: 400 mg Oxybutynin Chloride (Ditropan Xl) 10 mg PO HS [facility] Stop: 10/28/19 20:59 Last Admin: 09/04/19 21:10 Dose: Not Given Pioglitazone HCl (Actos) 15 mg PO DAILY [facility] Stop: 10/29/19 08:59 Last Admin: 09/05/19 08:41 Dose: 15 mg Quetiapine Fumarate (Seroquel) 37.5 mg PO BID [facility]; Protocol Stop: 11/02/19 08:59 Last Admin: 09/05/19 16:45 Dose: 37.5 mg Tramadol HCl (Ultram) 50 mg PO HS PRN PRN Reason: Pain (Severe 7-10) Stop: 10/28/19 11:22 Valproate Sodium (Depakene) 500 mg PO BID [facility]; Protocol Stop: 10/29/19 09:59 Last Admin: 09/05/19 16:45 Dose: 500 mg Zolpidem Tartrate (Ambien) 5 mg PO HS PRN PRN Reason: Insomnia Stop: 10/28/19 11:22 Last Admin: 09/01/19 22:30 Dose: 5 mg General: alert, NAD HEENT: NC/AT, PERRLA Neck: Supple Lungs: CTAB Cardiovascular: RRR, Normal S1, Normal S2 Abdomen: soft, non-tender, non-distended Extremities: clear Internal Medicine Assmt/Plan - Assessment Assessment: parkinson's dm2 htn hx glaucoma dementia hyperlipidemia paranoid schizophrenia - Plan Plan: monitor glucose fall precautions cpm Nutritional Asmnt/Malnutr-PDOC - Dietary Evaluation Malnutrition Findings (Please click <Entered> for more info): Nutritional Asmnt/Malnutrition Start: 08/31/19 12: 26 Text: Status: Complete Freq: Protocol: Document 08/31/19 12:26 OMKAR (Rec: 08/31/19 12:29 OMKAR [email or web address]) Nutritional Asmnt/Malnutrition Patient General Information Nutritional Screening Moderate Risk Diagnosis Psychosis Pertinent Medical Hx/Surgical Hx Parkinsons disease, type 2 diabetes, HTN, glaucoma, dementia, hyperlipidemia, and paranoid schizophrenia Subjective Information Pt is a 69-year-old male admitted on 08/28 d/t confusion and agitation. Pt is eating <50% (x1 day), therefore not recommending renal diet modification at this time of meals. Per nursing notes (08/29) ate 100% snacks, but patient with poor appetite. Patient only ate 25% meals today. Spoke to KIRBY Ferguson this morning, he advised pt. drank milk and ate 50% of breakfast. Pt. told SURGICAL SERVICES ASSISTANT that he did not have much of an appetite. Will continue to monitor pt. PO intake and nutritional supplement if needed. Notified pt nurse of renal labs, nurse stated she will monitor urine output. Anthropometrics HT: 58 WT: 165 LB (75.00 kg) BMI: 25.08 (Overweight) GI/ Skin Integrity GI: WNL, Flat, Soft BM: 08/30 x1 I/O: 1200/Not Noted Skin: WNL, None/ Intact Ancelmo: 18 Diet Order: Cardiac, Msoft, PIO, CCHO 60gms, Clear Liquid Estimated Energy Needs: ( Geriatric, CBW) 3853-0993 kcals (25-30 kcals/ kg) 60-67g Pro (0.8-0.9 g/kg) 5494-2255 ml (25-30 ml/kg Current Diet Order/ Nutrition Support Cardiac, Msoft, PIO, CCHO 60gms, Clear Liquid Pertinent Medications Maalox (PRN), Dulcolax 10Mg Supp, Tums, Glutose 40%, Colace, Humalog Ins-S Pertinent Labs 08/30: Glucose POC (last 24hrs) 105, 139 08/28: Glucose 125, Calcium 8.3 , BUN 44, Cr 2.07, GFR 30 Nutritional Hx/Data Height 5 ft 8 in Height (Calculated Centimeters) 172.7 Current Weight (lbs) 165 lb Weight (Calculated Kilograms) 74.8 Weight (Calculated Grams) 50270.7 Elmo Body Weight 154 % Elmo Body Weight 107 Body Mass Index (BMI) 25.0 Weight Status Overweight GI Symptoms Last BM 08/30 x1 Skin Integrity/Comment: Skin: WNL, None/ Intact Ancelmo: 18 Current %PO Poor (25-49%) Estimated Nutritional Goals BEE in Kcals: Using Current wt Calories/Kcals/Kg 25-30 Kcals Calculated 8105-0290 Protein: Using Current wt Protein g/k.8-0.9 Protein Calculated 60-67 Fluid: ml 0067-3331 ml (25-30 ml/kg) Nutritional Problem 1. Problem Problem Inadequate oral intake Etiology r/t consistent underconsumption of energy Signs/Symptoms: aeb. Nursing notes, ate 100% snacks, but patient with poor appetite. Patient only ate 25% meals today. and recorded PO intake <50% per Per Meal/ Nutrition Activity Record. Malnutrition Related to Morbid Obesity Malnutrition related to morbid obesity No Intervention/Recommendation Comments 1.Continue Cardiac, Msoft, PIO , CCHO 60gms, Clear Liquid as tolerated by pt. Expected Outcomes/Goals Expected Outcomes/Goals 1. PO intake to meet 75% of estimated nutritional needs. 2. Monitor PO intake, wt, nutrition related labs to trend WNL, and skin integrity. 3. F/U as moderate risk in 3-5 days, 09/02-09/04
[2019-09-05] MEDS: Oxybutynin Chloride 5 mg ER Tab PO SCH (21:02)
[2019-09-06] MEDS: INSULIN LISPRO SLIDING SCALE 100 UNITS/ML UNIT SUBQ SCH ×4 (06:31→21:18)
--- NOTE | 2019-09-06 07:40 | Progress Notes ---
DATE: 09/05/2019 SUBJECTIVE: Chart was reviewed and patient interviewed. Also discussed the patient's condition with the staff and reviewed records and labs. The patient is still in angry and in irritable mood. The patient also is still having episodes of yelling and screaming, but much less than before. He seems to be in a depressed mood and he is isolating himself for most of the time. The patient also is still slow to respond. Staff reports that his yelling and screaming are much less than what it was before. Vital signs are stable. Depakote blood level that was done yesterday came back to be 51, which is within therapeutic level. MENTAL STATUS EXAMINATION: Lying in bed. Calm. Cooperative. Poor eye contact. Low tone and rate of speech. In a depressed mood. ASSESSMENT: The patient still seems to be depressed and still needs close monitoring. TREATMENT PLAN: Continue to monitor his behavior and his condition closely. Also, continue Depakote, Seroquel same dose. Also, working on his discharge plans and monitor his behavior. JOB# [id number]
[2019-09-06] MEDS: Oxybutynin Chloride 5 mg ER Tab PO SCH (21:16)
[2019-09-07] MEDS: INSULIN LISPRO SLIDING SCALE 100 UNITS/ML UNIT SUBQ SCH ×2 (06:37→11:19)
--- NOTE | 2019-09-07 09:52 | Discharge Summary ---
DATE OF DISCHARGE: 09/07/2019 AGE: 69. SEX: Male. PHYSICIAN: Dr. Lees. FINAL DIAGNOSIS AND PRIMARY DIAGNOSIS: Schizophrenic disorder, unspecified. MEDICAL DIAGNOSES: Parkinson disease. Noninsulin dependent diabetes mellitus. Hyperlipidemia. REASON FOR HOSPITALIZATION: The patient is a 69-year-old who was admitted from [facility] because of confusion and anxiety and the patient also was actively hallucinating and talking to himself. HOSPITAL COURSE: The patient continued to be anxious and confused. The patient also was restless. The patient also was having episodes of active hallucinations. The patient was given Seroquel dose adjusted to 37.5 mg twice a day and Depakote dose adjusted to 500 mg twice a day. Gradually, the patient's affect was brighter. The patient was less psychotic and less irritable. He also was able to follow directions easily. The patient was discharged from the hospital back to [facility]. Physical exam of the patient was as mentioned under final diagnosis. Blood workup was monitored closely. Depakote blood level that was done on 09/05/2019 came back to be 51. AFTER DISCHARGE PLANS: The patient discharged from the hospital and went back to [facility]. We will follow the patient. EXPECTED OUTCOME AFTER DISCHARGE: Fair if the patient continued to take psychotropic medications and follow up with discharge plans. JOB# [id number]
== END 2019-09-07 15:50 | DRG 885 ==
LOC: GERO 11:00
PROVIDERS: ADMIT Psychiatry & Neurology Psychiatry; ATTEND Psychiatry & Neurology Psychiatry
DX: F25.9 Schizoaffective disorder, unspecified (principal); G20 Parkinson's disease; E78.5 Hyperlipidemia, unspecified; E11.9 Type 2 diabetes mellitus without complications; I10 Essential (primary) hypertension; H40.9 Unspecified glaucoma; Z79.899 Other long term (current) drug therapy; Z79.84 Long term (current) use of oral hypoglycemic drugs
CPT/HCPCS: 82948-90; 83036-90; 97530; X3904; Z7610

== ENCOUNTER 2019-10-06 19:48 | Inpatient (IN) | payer MEDICARE, BC ==
[2019-10-07] MEDS ORDERED: Maalox 30 mL Cup PO PRN (00:45)
[2019-10-07] MEDS ORDERED: Magnesium Hydroxide (MOM) 30 mL UDC PO PRN (00:45)
[2019-10-07 00:46] VITALS: BP 148/78
[2019-10-07] MEDS ORDERED: Guaifenesin DM 10 ML UDC PO PRN (02:04)
[2019-10-07] MEDS: INSULIN LISPRO SLIDING SCALE 100 UNITS/ML UNIT SUBQ SCH ×4 (06:54→21:11)
--- NOTE | 2019-10-07 08:51 | Psychiatric Evaluation ---
DATE OF SERVICE: 10/07/2019 JUSTIFICATION FOR HOSPITALIZATION: The patient coming into the hospital, agitation, aggressive behaviors and outbursts. HISTORY OF PRESENT ILLNESS: A 69-year-old male, unfortunately refusing to speak with me this morning, coming in for increased agitation and aggressive behaviors, outbursts. Prior diagnosis of schizophrenia, noted to be mumbling to self, garbled speech, disorganized thinking per staff, hard to assess, orientation hard to assess, not wanting to engage with me, tired, sleepy. PAST PSYCHIATRIC HISTORY: Noted schizophrenia, possibly bipolar, dementia as well. FAMILY HISTORY: Unable to assess. SOCIAL HISTORY: Coming in from a local longterm. Unclear family support. Beyond this, I am not able to assess. MEDICATIONS: Reviewed. Currently on dosing of Seroquel. PAST MEDICAL HISTORY: Please see full H and P. It seems he has history of Parkinson's disease, on Parkinson's medications, such as Comtan. MENTAL STATUS EXAMINATION: Stated age, sleeping, arousable, not engaging with me, closes his eyes, poor impulse control. Concerns for underlying psychotic symptoms given his outbursts, poor insight, very poor impulse control. DIAGNOSES: Dementia, dementia with behaviors and possibly schizophrenia versus bipolar, ____ Parkinson's. ASSESSMENT: The patient requiring hospitalization, aggressive, unruly behaviors, could not be cared for at a lower level of care, outbursts. ESTIMATED LENGTH OF STAY: 7-12 days. PLAN: We will continue inpatient monitoring and make appropriate medication adjustments. TREATMENT PLAN: Includes group as well as milieu therapy. CONDITIONS FOR DISCHARGE: Improved mood, improved affect, better control of his agitation and aggressive behaviors. [facility]# [id number]
[2019-10-07] MEDS: Lactulose 10 Gm/15 mL 30mL UDC PO SCH ×2 (09:18→17:46)
[2019-10-07] MEDS: Oxybutynin Chloride 5 mg ER Tab PO SCH (21:12)
[2019-10-08] MEDS: INSULIN LISPRO SLIDING SCALE 100 UNITS/ML UNIT SUBQ SCH ×4 (06:33→21:20)
--- NOTE | 2019-10-08 07:59 | Progress Notes ---
DATE: SUBJECTIVE: Chart reviewed and the patient interviewed. Also, discussed the patient's condition with the staff and reviewed records and labs. The patient seems to be calmer. He is less irritable and less agitated. The patient also is interacting, but in a confused way. He also is still suspicious and is still paranoid. Otherwise, no side effects of medications. Vital signs are stable and no new labs available for review and gait is steady. MENTAL STATUS EXAMINATION: Anxious. Cooperative. Restless. Confused. ASSESSMENT: The patient is still confused and paranoid, but no major behavioral problems. TREATMENT PLAN: Continue to monitor his behavior closely. Also, continue adjusting psychotropic medications and follow up closely. ESTIMATED LENGTH OF STAY: 2-4 days. PATIENT'S STRENGTHS AND WEAKNESSES: The patient has supportive team there in [place]. REASON FOR CONTINUED HOSPITAL STAY: The patient is still confused and slightly agitated. JOB# [id number]
[2019-10-08] MEDS: Lactulose 10 Gm/15 mL 30mL UDC PO SCH ×2 (13:52→17:18)
[2019-10-08] MEDS: Oxybutynin Chloride 5 mg ER Tab PO SCH (21:21)
[2019-10-09] MEDS: INSULIN LISPRO SLIDING SCALE 100 UNITS/ML UNIT SUBQ SCH ×4 (06:37→21:48)
[2019-10-09] MEDS: Lactulose 10 Gm/15 mL 30mL UDC PO SCH ×2 (09:08→17:03)
--- NOTE | 2019-10-09 17:45 | History & Physical ---
ADMIT DATE: 10/09/2019 CHIEF COMPLAINT: Transferred from [facility] to the Geropsych Unit HISTORY OF PRESENT ILLNESS: This is a 69-year-old male who is medically cleared from [facility] who is transferred from [facility] with a past medical history of DM, hypertension, Parkinson, CKD, BPH, glaucoma, paranoid schizophrenia, bipolar, dementia. PAST MEDICAL HISTORY: As mentioned in present illness. PAST SURGICAL HISTORY: Unknown. ALLERGIES: No known drug allergies. HOME MEDICATIONS: See medication list. FAMILY HISTORY: Noncontributory. SOCIAL HISTORY: The patient is a correction resident. REVIEW OF SYSTEMS: GENERAL: Denies any fevers or chills. CARDIOVASCULAR: Denies chest pain. RESPIRATORY: Denies shortness of breath. GASTROINTESTINAL: Denies any nausea, vomiting, abdominal pain. GENITOURINARY: Denies increased frequency. NEUROLOGIC: No headaches, seizure or syncope. All systems are reviewed and are negative. PHYSICAL EXAMINATION: EXTREMITIES: The patient is well-developed, well-nourished, no apparent distress. VITAL SIGNS: Temperature 97.5, heart rate 65, blood pressure 141/____, O2 97%. HEENT: Head; normocephalic, atraumatic. NECK: Supple. No mass. LUNGS: Clear bilaterally. ABDOMEN: Soft, nontender, nondistended. ASSESSMENT: Type 2 diabetes, hypertension, Parkinson, chronic kidney disease, benign prostatic hypertrophy, history of glaucoma, paranoid schizophrenia, bipolar, dementia. PLAN: Fall precautions will be initiated. Monitor patient's glucose closely. We will continue to follow this patient. JOB# [id number]
[2019-10-09] MEDS: Oxybutynin Chloride 5 mg ER Tab PO SCH (21:43)
--- NOTE | 2019-10-09 22:47 | Progress Notes ---
DATE: 10/09/2019 SUBJECTIVE: Chart reviewed and the patient interviewed. Also discussed the patient's condition with the staff and reviewed records and labs. The patient is still confused and forgetful and needs lots of redirections. The patient also is still unable to follow directions. On the other hand, the patient is calm and he is cooperative, but not taking all his medications regularly and yesterday, the patient took Depakote only once at night and refused to take the Seroquel in the morning. Otherwise, the patient is taking the rest of the medications. The patient's gait is slow, but steady and vital signs are stable and no new labs available for review. MENTAL STATUS EXAMINATION: The patient is calm. Confused. Unable to follow directions. ASSESSMENT: The patient is still confused and forgetful, but not agitated. TREATMENT PLAN: We will continue to monitor his behavior and his medications closely. Also, continue adjusting psychotropic medications and work on discharge plans. ESTIMATED LENGTH OF STAY: 2-4 days. REASON TO CONTINUE HOSPITAL STAY: The patient is still confused and monitor his behavior for any possibility of agitation as well as adjusting psychotropic medications. CHANGE IN MEDICATIONS: I will add Aricept 5 mg every day to help with his forgetfulness and confusion. JOB# [id number]
[2019-10-10] MEDS: INSULIN LISPRO SLIDING SCALE 100 UNITS/ML UNIT SUBQ SCH ×4 (06:43→21:19)
--- NOTE | 2019-10-10 07:32 | Progress Notes ---
DATE: SUBJECTIVE: Chart reviewed and the patient interviewed. Also discussed the patient's condition with the staff and reviewed records and labs. The patient is still confused and anxious, but he is calm and cooperative. The patient also is rambling, but no major behavioral problems. He is compliant, was taking his medications with no side effects of medications. The patient is talking about his family and he has some issues with his family "ignoring me." Otherwise, the patient is compliant with taking his medications with no side effects of medications. The patient's gait is steady. Vital signs are stable and no new labs available for review. Actually staff reports that COVID virus test came back negative. Hemoglobin A1c that was done in [facility] came back to be 6.9 and his LDL is 116. MENTAL STATUS EXAMINATION: Confused. Anxious. Rambling. Thought processes are circumstantial, but no flight of ideas. ASSESSMENT: The patient is still confused, but calm and less agitated. TREATMENT PLAN: We will continue monitoring his behavior and his condition closely. Also, we will get Depakote blood level. Also, we will continue Seroquel same dose and we will continue to follow up. ESTIMATED LENGTH OF STAY: 1-3 days. REASON TO CONTINUE HOSPITAL STAY: The patient is still anxious and we are working on his mood and behavior. JOB# [id number]
[2019-10-10] MEDS: Lactulose 10 Gm/15 mL 30mL UDC PO SCH ×2 (09:35→17:17)
--- NOTE | 2019-10-10 15:10 | Internal Medicine Prog Note ---
Internal Medicine Subjective - Subjective Service Date: 10/10/19 Patient seen and examined:: with staff Patient is:: awake Per staff patient has:: tolerating meds Internal Medicine Objective - Results Recent Labs: Laboratory Last Values POC Glucose 88 MG/DL (70 - 105) 10/10/19 06:14 - Physical Exam Vitals and I&O: Vital Signs Temp 98.9 F 10/10/19 14:00 Pulse 57 10/10/19 14:00 Resp 20 10/10/19 14:00 BP 130/75 10/10/19 14:00 Pulse Ox 96 10/10/19 14:00 Intake & Output 10/09/19 10/10/19 10/10/19 18:59 06:59 18:59 Intake Total 1200 240 450 Balance 1200 240 450 Intake: Oral 1200 240 450 Other: # Voids 3 2 # Bowel Movements 0 0 1 Active Medications: Current Medications Acetaminophen (Tylenol) 650 mg PO Q4H PRN PRN Reason: Pain (Mild 1-3) Stop: 12/06/19 02:03 Acetaminophen (Tylenol) 650 mg PO Q4H PRN PRN Reason: Fever Stop: 12/06/19 04:54 Al Hydrox/Mg Hydrox/Simethicone (Maalox) 30 ml PO Q4HR PRN PRN Reason: GI DISTRESS Stop: 12/06/19 00:44 Ascorbic Acid (Vitamin C) 500 mg PO DAILY [facility] Stop: 12/06/19 08:59 Last Admin: 10/10/19 09:34 Dose: 500 mg Bisacodyl (Dulcolax 10 Mg Supp) 10 mg RC DAILY PRN PRN Reason: Constipation Stop: 12/06/19 02:03 Brimonidine Tartrate (Alphagan 0.15% [facility]) 1 drop EACH EYE TID [facility] Stop: 12/06/19 08:59 Last Admin: 10/10/19 15:00 Dose: 1 drop Carbidopa/Levodopa (Sinemet 25mg-100 Mg) 1 tab PO QID [facility] Stop: 12/06/19 08:59 Last Admin: 10/10/19 14:00 Dose: 1 tab Carvedilol (Coreg) 12.5 mg PO DAILY [facility] Stop: 12/06/19 08:59 Last Admin: 10/10/19 09:36 Dose: 12.5 mg Clopidogrel Bisulfate (Plavix) 75 mg PO DAILY [facility] Stop: 12/06/19 08:59 Last Admin: 10/10/19 09:37 Dose: 75 mg Dextrose (Glutose 40%) 37.5 gm PO PRN PRN PRN Reason: BS Below 70 if tolerate po Stop: 12/06/19 02:03 Divalproex Sodium (Depakote Dr) 500 mg PO BID [facility]; Protocol Stop: 12/06/19 08:59 Last Admin: 10/10/19 09:34 Dose: 500 mg Docusate Sodium (Colace) 250 mg PO BID [facility] Stop: 12/06/19 08:59 Last Admin: 10/10/19 09:34 Dose: 250 mg Donepezil HCl (Aricept) 5 mg PO HS [facility] Stop: 12/08/19 20:59 Last Admin: 10/09/19 21:43 Dose: 5 mg Dorzolamide HCl (Trusopt 2% Ophth Soln) 1 drop EACH EYE BID [facility] Stop: 12/06/19 08:59 Last Admin: 10/10/19 09:35 Dose: 1 drop Entacapone (Comtan) 200 mg PO QID [facility] Stop: 12/06/19 08:59 Last Admin: 10/10/19 14:00 Dose: 200 mg Guaifenesin/Dextromethorphan (Robitussin Dm) 10 ml PO Q6HR PRN PRN Reason: Cough Stop: 12/06/19 02:03 Insulin Human Lispro (Humalog Insulin Sliding Scale) 0 units SUBQ ACHS [facility]; Protocol Stop: 12/06/19 07:29 Last Admin: 10/10/19 11:50 Dose: Not Given Isosorbide Dinitrate (Isordil) 5 mg PO DAILY [facility] Stop: 12/06/19 08:59 Last Admin: 10/10/19 09:42 Dose: 5 mg Lactulose (Cephulac) 30 gm PO BID [facility] Stop: 12/06/19 08:59 Last Admin: 10/10/19 09:35 Dose: 30 gm Lorazepam (Ativan) 0.5 mg PO Q4HR PRN; Protocol PRN Reason: Anxiety Stop: 11/06/19 00:44 Magnesium Hydroxide (Milk Of Magnesia) 30 ml PO HS PRN PRN Reason: Constipation Magnesium Oxide (Mag-Oxide) 400 mg PO BID [facility] Stop: 12/06/19 08:59 Last Admin: 10/10/19 09:37 Dose: 400 mg Oxybutynin Chloride (Ditropan Xl) 10 mg PO HS [facility] Stop: 12/06/19 20:59 Last Admin: 10/09/19 21:43 Dose: 10 mg Pioglitazone HCl (Actos) 15 mg PO DAILY [facility] Stop: 12/06/19 08:59 Last Admin: 10/10/19 09:37 Dose: 15 mg Quetiapine Fumarate (Seroquel) 25 mg PO DAILY [facility]; Protocol Stop: 12/06/19 08:59 Last Admin: 10/10/19 09:37 Dose: 25 mg Quetiapine Fumarate (Seroquel) 50 mg PO HS [facility]; Protocol Stop: 12/06/19 20:59 Last Admin: 10/09/19 21:43 Dose: 50 mg Zolpidem Tartrate (Ambien) 5 mg PO HS PRN PRN Reason: Insomnia Stop: 12/06/19 00:44 Last Admin: 10/08/19 21:22 Dose: 5 mg General: alert HEENT: NC/AT, PERRLA Neck: Supple Lungs: CTAB Internal Medicine Assmt/Plan - Assessment Assessment: ASSESSMENT: Type 2 diabetes, hypertension, Parkinson, chronic kidney disease, benign prostatic hypertrophy, history of glaucoma, paranoid schizophrenia, bipolar, dementia. - Plan Plan: PLAN: Fall precautions will be initiated. Monitor patient's glucose closely. We will continue to follow this patient. Nutritional Asmnt/Malnutr-PDOC - Dietary Evaluation Malnutrition Findings (Please click <Entered> for more info): Nutritional Asmnt/Malnutrition Start: 10/08/19 15: 16 Text: Status: Complete Freq: Protocol: Document 10/08/19 15:16 OMKAR (Rec: 10/08/19 15:19 OMKAR [email or web address]) Nutritional Asmnt/Malnutrition Patient General Information Nutritional Screening Moderate Risk Diagnosis Psychosis Pertinent Medical Hx/Surgical Hx Parkinsons Disease, no H&P charted Subjective Information Consult: Poor Intake, no dentures with poor eating Pt is a 69-year-old male admitted on 10/05 d/t agitation and aggressive behaviors. Dietary is currently providing an estimated 1800 kcals and 110 gm Pro. Pt has noted low PO intake 10/07: 25-50-15%. Visited pt in afternoon, pt did not speak, but nodded his head when asked questions. Pt nodded no when asked if he was hungry, pt also nodded no when asked if his stomach was in any pain. I let him know to ask a nurse for a snack if he was hungry before dinner time. Pt seemed tired, nurse Staci stated pt has been sleepy all day. Nurse stated pt had trouble eating soft peas today, and we discussed downgrading texture to a ground diet. Will monitor PO intake and diet modification tolerance. Provided a diet yogurt for pt before leaving. Anthropometrics HT: 58 WT: 165 LB (75 kg) BMI: 25.09 (Overweight) GI/ Skin Integrity GI: WNL, Soft, Non-tender BM: Not Noted I/O: 800/1 (+799) Skin: WNL, Intact, Dryness Ancelmo: 15, old sacral PU scar present Diet Order: Mechanical Soft, CCHO 60 gm Estimated Energy Needs: ( Geriatric, CBW) 1850- 2200 kcals (25-30 kcals/ kg) 75-90g Pro (1.0-1.2 g/kg) 3135-1078 ml (25-30 ml/kg) Current Diet Order/ Nutrition Support Mechanical Soft, CCHO 60 gm Pertinent Medications Maalox (PRN), Vitamin C, Dulcolax (PRN), Glutose 40% ( PRN0, Colace, INS-SS, Cephulac , MOM (PRN), Mag-Oxide, Actos Pertinent Labs POC Glucose (last 24 hours): 76, 85, 100, 105, 92, 113 10/05: Glucose 104, Albumin 3.1 Nutritional Hx/Data Height 5 ft 8 in Height (Calculated Centimeters) 172.7 Current Weight (lbs) 165 lb Weight (Calculated Kilograms) 74.8 Weight (Calculated Grams) 43221.7 [place] Body Weight 154 LB (70 kg) % [place] Body Weight 107 Body Mass Index (BMI) 25.0 Weight Status Overweight GI Symptoms Last BM Not Noted Skin Integrity/Comment: Skin: WNL, Intact, Dryness Ancelmo: 15, old sacral PU scar present Current %PO Poor (25-49%) Estimated Nutritional Goals BEE in Kcals: Using Current wt Calories/Kcals/Kg 25-30 Kcals Calculated 1850- 2200 Protein: Using Current wt Protein g/k.0-1.2 Protein Calculated 75-90 Fluid: ml 1804-3428 ml (25-30 ml/kg Nutritional Problem 1. Problem Problem Inadequate energy intake Etiology r/t possible poor appetite/ sleepiness Signs/Symptoms: aeb noted low PO intake 10/07: 25-50-15% and nurse statement. Malnutrition Related to Morbid Obesity Malnutrition related to morbid obesity No Intervention/Recommendation Comments Recommend Ground, CCHO 60gm diet. Expected Outcomes/Goals Expected Outcomes/Goals 1.PO intake to meet 75% of estimated nutritional needs. 2.Monitor PO intake, wt, nutrition related labs, and skin integrity. 3.F/U as moderate risk in 3-5 days, 09/13-10/12.
[2019-10-10] MEDS: Oxybutynin Chloride 5 mg ER Tab PO SCH (21:19)
[2019-10-11] MEDS: INSULIN LISPRO SLIDING SCALE 100 UNITS/ML UNIT SUBQ SCH ×4 (06:53→20:58)
--- NOTE | 2019-10-11 06:58 | Progress Notes ---
DATE: SUBJECTIVE: Chart reviewed and the patient interviewed. Also discussed the patient's condition with the staff and reviewed records and labs. The patient is still anxious and confused and restless. The patient also has episodes of aggression and restlessness and have aggressive outbursts according to staff. Also, difficulty to redirect him. Otherwise, the patient is compliant with taking his medications with no side effects of medications. The patient's gait is steady. Vital signs are stable and no new labs available for review. MENTAL STATUS EXAMINATION: Anxious. Unkempt. Fair eye contact. Normal tone and rate of speech. Rambling and thought processes are circumstantial with flight of ideas. The patient also seems to be paranoid and preoccupied. ASSESSMENT: The patient is still psychotic and needs close monitoring. TREATMENT PLAN: We will increase Seroquel to 37.5 mg twice a day and 75 mg at bedtime. Also, we will add trazodone 50 mg at bedtime because of his insomnia and we will continue to follow up closely. ESTIMATED LENGTH OF STAY: 2-4 days. REASON FOR CONTINUED HOSPITAL STAY: The patient is still psychotic and still needs adjustment to medications as well as behavioral modification. JOB# [id number]
[2019-10-11] MEDS: Lactulose 10 Gm/15 mL 30mL UDC PO SCH ×2 (09:17→17:34)
--- NOTE | 2019-10-11 13:46 | Internal Medicine Prog Note ---
Internal Medicine Subjective - Subjective Service Date: 10/11/19 Patient is:: awake Per staff patient has:: tolerating meds Internal Medicine Objective - Results Recent Labs: Laboratory Last Values POC Glucose 121 MG/DL (70 - 105) H 10/11/19 11:51 - Physical Exam Vitals and I&O: Vital Signs Temp 97.0 F 10/11/19 06:09 Pulse 60 10/11/19 09:30 Resp 20 10/11/19 08:00 BP 135/78 10/11/19 09:30 Pulse Ox 97 10/11/19 06:09 Intake & Output 10/10/19 10/11/19 10/11/19 18:59 06:59 18:59 Intake Total 690 120 Balance 690 120 Intake: Oral 690 120 Other: # Voids 2 # Bowel Movements 1 0 Active Medications: Current Medications Acetaminophen (Tylenol) 650 mg PO Q4H PRN PRN Reason: Pain (Mild 1-3) Stop: 12/06/19 02:03 Acetaminophen (Tylenol) 650 mg PO Q4H PRN PRN Reason: Fever Stop: 12/06/19 04:54 Al Hydrox/Mg Hydrox/Simethicone (Maalox) 30 ml PO Q4HR PRN PRN Reason: GI DISTRESS Stop: 12/06/19 00:44 Ascorbic Acid (Vitamin C) 500 mg PO DAILY [facility] Stop: 12/06/19 08:59 Last Admin: 10/11/19 09:20 Dose: 500 mg Bisacodyl (Dulcolax 10 Mg Supp) 10 mg RC DAILY PRN PRN Reason: Constipation Stop: 12/06/19 02:03 Brimonidine Tartrate (Alphagan 0.15% Ophth Soln) 1 drop EACH EYE TID [facility] Stop: 12/06/19 08:59 Last Admin: 10/11/19 09:16 Dose: 1 drop Carbidopa/Levodopa (Sinemet 25mg-100 Mg) 1 tab PO QID [facility] Stop: 12/06/19 08:59 Last Admin: 10/11/19 09:20 Dose: 1 tab Carvedilol (Coreg) 12.5 mg PO DAILY [facility] Stop: 12/06/19 08:59 Last Admin: 10/11/19 09:29 Dose: 12.5 mg Clopidogrel Bisulfate (Plavix) 75 mg PO DAILY [facility] Stop: 12/06/19 08:59 Last Admin: 10/11/19 09:20 Dose: 75 mg Dextrose (Glutose 40%) 37.5 gm PO PRN PRN PRN Reason: BS Below 70 if tolerate po Stop: 12/06/19 02:03 Divalproex Sodium (Depakote Dr) 500 mg PO BID [facility]; Protocol Stop: 12/06/19 08:59 Last Admin: 10/11/19 09:21 Dose: 500 mg Docusate Sodium (Colace) 250 mg PO BID [facility] Stop: 12/06/19 08:59 Last Admin: 10/11/19 09:20 Dose: 250 mg Donepezil HCl (Aricept) 5 mg PO HS [facility] Stop: 12/08/19 20:59 Last Admin: 10/10/19 21:18 Dose: 5 mg Dorzolamide HCl (Trusopt 2% Ophth Soln) 1 drop EACH EYE BID [facility] Stop: 12/06/19 08:59 Last Admin: 10/11/19 09:16 Dose: 1 drop Entacapone (Comtan) 200 mg PO QID [facility] Stop: 12/06/19 08:59 Last Admin: 10/11/19 09:21 Dose: 200 mg Guaifenesin/Dextromethorphan (Robitussin Dm) 10 ml PO Q6HR PRN PRN Reason: Cough Stop: 12/06/19 02:03 Insulin Human Lispro (Humalog Insulin Sliding Scale) 0 units SUBQ ACHS [facility]; Protocol Stop: 12/06/19 07:29 Last Admin: 10/11/19 11:53 Dose: Not Given Isosorbide Dinitrate (Isordil) 5 mg PO DAILY [facility] Stop: 12/06/19 08:59 Last Admin: 10/11/19 09:30 Dose: 5 mg Lactulose (Cephulac) 30 gm PO BID [facility] Stop: 12/06/19 08:59 Last Admin: 10/11/19 09:17 Dose: 30 gm Lorazepam (Ativan) 0.5 mg PO Q4HR PRN; Protocol PRN Reason: Anxiety Stop: 11/06/19 00:44 Last Admin: 10/11/19 01:58 Dose: 0.5 mg Magnesium Hydroxide (Milk Of Magnesia) 30 ml PO HS PRN PRN Reason: Constipation Magnesium Oxide (Mag-Oxide) 400 mg PO BID [facility] Stop: 12/06/19 08:59 Last Admin: 10/11/19 09:20 Dose: 400 mg Oxybutynin Chloride (Ditropan Xl) 10 mg PO HS [facility] Stop: 12/06/19 20:59 Last Admin: 10/10/19 21:19 Dose: 10 mg Pioglitazone HCl (Actos) 15 mg PO DAILY [facility] Stop: 12/06/19 08:59 Last Admin: 10/11/19 09:20 Dose: 15 mg Quetiapine Fumarate (Seroquel) 37.5 mg PO BID [facility]; Protocol Stop: 12/10/19 08:59 Last Admin: 10/11/19 09:32 Dose: Not Given Quetiapine Fumarate 50 mg/ (Quetiapine Fumarate 25 mg) 75 mg PO HS [facility] Stop: 12/10/19 20:59 Trazodone HCl (Desyrel) 50 mg PO HS [facility]; Protocol Stop: 12/10/19 20:59 Zolpidem Tartrate (Ambien) 5 mg PO HS PRN PRN Reason: Insomnia Stop: 12/06/19 00:44 Last Admin: 10/08/19 21:22 Dose: 5 mg General: alert HEENT: NC/AT, PERRLA Neck: Supple Lungs: CTAB Internal Medicine Assmt/Plan - Assessment Assessment: ASSESSMENT: Type 2 diabetes, hypertension, Parkinson, chronic kidney disease, benign prostatic hypertrophy, history of glaucoma, paranoid schizophrenia, bipolar, dementia. - Plan Plan: PLAN: Fall precautions will be initiated. Monitor patient's glucose closely. We will continue to follow this patient. Nutritional Asmnt/Malnutr-PDOC - Dietary Evaluation Malnutrition Findings (Please click <Entered> for more info): Nutritional Asmnt/Malnutrition Start: 10/08/19 15: 16 Text: Status: Complete Freq: Protocol: Document 10/08/19 15:16 OMKAR (Rec: 10/08/19 15:19 OMKAR [id number]) Nutritional Asmnt/Malnutrition Patient General Information Nutritional Screening Moderate Risk Diagnosis Psychosis Pertinent Medical Hx/Surgical Hx Parkinsons Disease, no H&P charted Subjective Information Consult: Poor Intake, no dentures with poor eating Pt is a 69-year-old male admitted on 10/05 d/t agitation and aggressive behaviors. Dietary is currently providing an estimated 1800 kcals and 110 gm Pro. Pt has noted low PO intake 10/07: 25-50-15%. Visited pt in afternoon, pt did not speak, but nodded his head when asked questions. Pt nodded no when asked if he was hungry, pt also nodded no when asked if his stomach was in any pain. I let him know to ask a nurse for a snack if he was hungry before dinner time. Pt seemed tired, nurse Staci stated pt has been sleepy all day. Nurse stated pt had trouble eating soft peas today, and we discussed downgrading texture to a ground diet. Will monitor PO intake and diet modification tolerance. Provided a diet yogurt for pt before leaving. Anthropometrics HT: 58 WT: 165 LB (75 kg) BMI: 25.09 (Overweight) GI/ Skin Integrity GI: WNL, Soft, Non-tender BM: Not Noted I/O: 800/1 (+799) Skin: WNL, Intact, Dryness Ancelmo: 15, old sacral PU scar present Diet Order: Mechanical Soft, CCHO 60 gm Estimated Energy Needs: ( Geriatric, CBW) 1850- 2200 kcals (25-30 kcals/ kg) 75-90g Pro (1.0-1.2 g/kg) 0504-7681 ml (25-30 ml/kg) Current Diet Order/ Nutrition Support Mechanical Soft, CCHO 60 gm Pertinent Medications Maalox (PRN), Vitamin C, Dulcolax (PRN), Glutose 40% ( PRN0, Colace, INS-SS, Cephulac , MOM (PRN), Mag-Oxide, Actos Pertinent Labs POC Glucose (last 24 hours): 76, 85, 100, 105, 92, 113 10/05: Glucose 104, Albumin 3.1 Nutritional Hx/Data Height 5 ft 8 in Height (Calculated Centimeters) 172.7 Current Weight (lbs) 165 lb Weight (Calculated Kilograms) 74.8 Weight (Calculated Grams) 90633.7 [place] Body Weight 154 LB (70 kg) % [place] Body Weight 107 Body Mass Index (BMI) 25.0 Weight Status Overweight GI Symptoms Last BM Not Noted Skin Integrity/Comment: Skin: WNL, Intact, Dryness Ancelmo: 15, old sacral PU scar present Current %PO Poor (25-49%) Estimated Nutritional Goals BEE in Kcals: Using Current wt Calories/Kcals/Kg 25-30 Kcals Calculated 1850- 2200 Protein: Using Current wt Protein g/k.0-1.2 Protein Calculated 75-90 Fluid: ml 6076-2423 ml (25-30 ml/kg Nutritional Problem 1. Problem Problem Inadequate energy intake Etiology r/t possible poor appetite/ sleepiness Signs/Symptoms: aeb noted low PO intake 10/07: 25-50-15% and nurse statement. Malnutrition Related to Morbid Obesity Malnutrition related to morbid obesity No Intervention/Recommendation Comments Recommend Ground, CCHO 60gm diet. Expected Outcomes/Goals Expected Outcomes/Goals 1.PO intake to meet 75% of estimated nutritional needs. 2.Monitor PO intake, wt, nutrition related labs, and skin integrity. 3.F/U as moderate risk in 3-5 days, 09/13-10/12.
[2019-10-11] MEDS: Oxybutynin Chloride 5 mg ER Tab PO SCH (20:58)
[2019-10-12] MEDS: INSULIN LISPRO SLIDING SCALE 100 UNITS/ML UNIT SUBQ SCH ×4 (06:44→16:32)
--- NOTE | 2019-10-12 08:00 | Discharge Summary ---
DATE OF DISCHARGE: 10/12/2019 PHYSICIAN: Dr. Lees. PRIMARY DIAGNOSIS: Dementia, moderate to severe, with psychosis and behavioral disturbances. MEDICAL DIAGNOSIS: Parkinson's disease. REASON FOR HOSPITALIZATION: The patient was admitted to the hospital because of increased agitation and aggressive behavior in [facility] where he lives. HOSPITAL COURSE: The patient continued to be in irritable mood. The patient also was restless and was anxious. The patient also was slightly confused. He continued to take Depakote 500 mg twice a day and Aricept 5 mg at bedtime. Gradually, the patient's affect was brighter. The patient was less agitated, especially Seroquel dose increased to 37.5 mg twice a day and 75 mg at bedtime. He also was cooperative and follows directions. PHYSICAL EXAMINATION: The patient was basically within normal and the patient had no major medical issues while in the hospital. AFTER DISCHARGE PLANS: The patient discharged from the hospital and returned to [facility] with plans for outpatient treatment. DISCHARGE ACTIVITY: As tolerated. DISCHARGE DIET: Regular. DISCHARGE PSYCHOTROPIC MEDICATIONS: Seroquel 37.5 mg twice a day and 75 mg at bedtime. EXPECTED OUTCOME AFTER DISCHARGE: Fair if the patient continues his outpatient treatment and followup. JOB# [id number]
[2019-10-12] MEDS: Lactulose 10 Gm/15 mL 30mL UDC PO SCH ×2 (08:22→16:31)
--- NOTE | 2019-10-12 16:48 | Internal Medicine Prog Note ---
Internal Medicine Subjective - Subjective Service Date: 10/12/19 Patient is:: awake Per staff patient has:: tolerating meds Internal Medicine Objective - Results Recent Labs: Laboratory Last Values POC Glucose 110 MG/DL (70 - 105) H 10/12/19 11:16 - Physical Exam Vitals and I&O: Vital Signs Temp 97.3 F 10/12/19 14:00 Pulse 51 10/12/19 14:00 Resp 20 10/12/19 14:00 BP 111/63 10/12/19 14:00 Pulse Ox 97 10/12/19 14:00 Intake & Output 10/11/19 10/12/19 10/12/19 18:59 06:59 18:59 Intake Total 1200 240 Balance 1200 240 Intake: Oral 1200 240 Other: # Voids 2 # Bowel Movements 1 0 Active Medications: Current Medications Acetaminophen (Tylenol) 650 mg PO Q4H PRN PRN Reason: Pain (Mild 1-3) Stop: 12/06/19 02:03 Acetaminophen (Tylenol) 650 mg PO Q4H PRN PRN Reason: Fever Stop: 12/06/19 04:54 Al Hydrox/Mg Hydrox/Simethicone (Maalox) 30 ml PO Q4HR PRN PRN Reason: GI DISTRESS Stop: 12/06/19 00:44 Ascorbic Acid (Vitamin C) 500 mg PO DAILY [facility] Stop: 12/06/19 08:59 Last Admin: 10/12/19 08:22 Dose: 500 mg Bisacodyl (Dulcolax 10 Mg Supp) 10 mg RC DAILY PRN PRN Reason: Constipation Stop: 12/06/19 02:03 Brimonidine Tartrate (Alphagan 0.15% Ophth Soln) 1 drop EACH EYE TID [facility] Stop: 12/06/19 08:59 Last Admin: 10/12/19 13:40 Dose: 1 drop Carbidopa/Levodopa (Sinemet 25mg-100 Mg) 1 tab PO QID [facility] Stop: 12/06/19 08:59 Last Admin: 10/12/19 16:30 Dose: 1 tab Carvedilol (Coreg) 12.5 mg PO DAILY [facility] Stop: 12/06/19 08:59 Last Admin: 10/12/19 08:26 Dose: Not Given Clopidogrel Bisulfate (Plavix) 75 mg PO DAILY [facility] Stop: 12/06/19 08:59 Last Admin: 10/12/19 08:22 Dose: 75 mg Dextrose (Glutose 40%) 37.5 gm PO PRN PRN PRN Reason: BS Below 70 if tolerate po Stop: 12/06/19 02:03 Divalproex Sodium (Depakote Dr) 500 mg PO BID [facility]; Protocol Stop: 12/06/19 08:59 Last Admin: 10/12/19 16:30 Dose: 500 mg Docusate Sodium (Colace) 250 mg PO BID [facility] Stop: 12/06/19 08:59 Last Admin: 10/12/19 16:31 Dose: 250 mg Donepezil HCl (Aricept) 5 mg PO HS [facility] Stop: 12/08/19 20:59 Last Admin: 10/11/19 20:57 Dose: 5 mg Dorzolamide HCl (Trusopt 2% Ophth Soln) 1 drop EACH EYE BID [facility] Stop: 12/06/19 08:59 Last Admin: 10/12/19 16:32 Dose: 1 drop Entacapone (Comtan) 200 mg PO QID [facility] Stop: 12/06/19 08:59 Last Admin: 10/12/19 16:30 Dose: 200 mg Guaifenesin/Dextromethorphan (Robitussin Dm) 10 ml PO Q6HR PRN PRN Reason: Cough Stop: 12/06/19 02:03 Insulin Human Lispro (Humalog Insulin Sliding Scale) 0 units SUBQ ACHS [facility]; Protocol Stop: 12/06/19 07:29 Last Admin: 10/12/19 16:32 Dose: Not Given Isosorbide Dinitrate (Isordil) 5 mg PO DAILY [facility] Stop: 12/06/19 08:59 Last Admin: 10/12/19 08:26 Dose: Not Given Lactulose (Cephulac) 30 gm PO BID [facility] Stop: 12/06/19 08:59 Last Admin: 10/12/19 16:31 Dose: 30 gm Lorazepam (Ativan) 0.5 mg PO Q4HR PRN; Protocol PRN Reason: Anxiety Stop: 11/06/19 00:44 Last Admin: 10/11/19 01:58 Dose: 0.5 mg Magnesium Hydroxide (Milk Of Magnesia) 30 ml PO HS PRN PRN Reason: Constipation Magnesium Oxide (Mag-Oxide) 400 mg PO BID [facility] Stop: 12/06/19 08:59 Last Admin: 10/12/19 16:30 Dose: 400 mg Oxybutynin Chloride (Ditropan Xl) 10 mg PO HS [facility] Stop: 12/06/19 20:59 Last Admin: 10/11/19 20:58 Dose: 10 mg Pioglitazone HCl (Actos) 15 mg PO DAILY [facility] Stop: 12/06/19 08:59 Last Admin: 10/12/19 08:24 Dose: 15 mg Quetiapine Fumarate (Seroquel) 37.5 mg PO BID [facility]; Protocol Stop: 12/10/19 08:59 Last Admin: 10/12/19 16:30 Dose: 37.5 mg Quetiapine Fumarate 50 mg/ (Quetiapine Fumarate 25 mg) 75 mg PO HS [facility] Stop: 12/10/19 20:59 Last Admin: 10/11/19 20:58 Dose: 75 mg Trazodone HCl (Desyrel) 50 mg PO HS [facility]; Protocol Stop: 12/10/19 20:59 Last Admin: 10/11/19 20:58 Dose: 50 mg Zolpidem Tartrate (Ambien) 5 mg PO HS PRN PRN Reason: Insomnia Stop: 12/06/19 00:44 Last Admin: 10/08/19 21:22 Dose: 5 mg General: alert HEENT: NC/AT, PERRLA Neck: Supple Lungs: CTAB Internal Medicine Assmt/Plan - Assessment Assessment: ASSESSMENT: Type 2 diabetes, hypertension, Parkinson, chronic kidney disease, benign prostatic hypertrophy, history of glaucoma, paranoid schizophrenia, bipolar, dementia. - Plan Plan: PLAN: Fall precautions will be initiated. Monitor patient's glucose closely. We will continue to follow this patient. Nutritional Asmnt/Malnutr-PDOC - Dietary Evaluation Malnutrition Findings (Please click <Entered> for more info): Nutritional Asmnt/Malnutrition Start: 10/08/19 15: 16 Text: Status: Complete Freq: Protocol: Document 10/08/19 15:16 OMKAR (Rec: 10/08/19 15:19 OMKAR [id number]) Nutritional Asmnt/Malnutrition Patient General Information Nutritional Screening Moderate Risk Diagnosis Psychosis Pertinent Medical Hx/Surgical Hx Parkinsons Disease, no H&P charted Subjective Information Consult: Poor Intake, no dentures with poor eating Pt is a 69-year-old male admitted on 10/05 d/t agitation and aggressive behaviors. Dietary is currently providing an estimated 1800 kcals and 110 gm Pro. Pt has noted low PO intake 10/07: 25-50-15%. Visited pt in afternoon, pt did not speak, but nodded his head when asked questions. Pt nodded no when asked if he was hungry, pt also nodded no when asked if his stomach was in any pain. I let him know to ask a nurse for a snack if he was hungry before dinner time. Pt seemed tired, nurse Staci stated pt has been sleepy all day. Nurse stated pt had trouble eating soft peas today, and we discussed downgrading texture to a ground diet. Will monitor PO intake and diet modification tolerance. Provided a diet yogurt for pt before leaving. Anthropometrics HT: 58 WT: 165 LB (75 kg) BMI: 25.09 (Overweight) GI/ Skin Integrity GI: WNL, Soft, Non-tender BM: Not Noted I/O: 800/1 (+799) Skin: WNL, Intact, Dryness Ancelmo: 14, old sacral PU scar present Diet Order: Mechanical Soft, CCHO 60 gm Estimated Energy Needs: ( Geriatric, CBW) 1850- 2200 kcals (25-30 kcals/ kg) 75-90g Pro (1.0-1.2 g/kg) 7792-0936 ml (25-30 ml/kg) Current Diet Order/ Nutrition Support Mechanical Soft, CCHO 60 gm Pertinent Medications Maalox (PRN), Vitamin C, Dulcolax (PRN), Glutose 40% ( PRN0, Colace, INS-SS, Cephulac , MOM (PRN), Mag-Oxide, Actos Pertinent Labs POC Glucose (last 24 hours): 76, 85, 100, 105, 92, 113 10/05: Glucose 104, Albumin 3.1 Nutritional Hx/Data Height 5 ft 8 in Height (Calculated Centimeters) 172.7 Current Weight (lbs) 165 lb Weight (Calculated Kilograms) 74.8 Weight (Calculated Grams) 35717.7 [place] Body Weight 154 LB (70 kg) % [place] Body Weight 107 Body Mass Index (BMI) 25.0 Weight Status Overweight GI Symptoms Last BM Not Noted Skin Integrity/Comment: Skin: WNL, Intact, Dryness Ancelmo: 14, old sacral PU scar present Current %PO Poor (25-49%) Estimated Nutritional Goals BEE in Kcals: Using Current wt Calories/Kcals/Kg 25-30 Kcals Calculated 1850- 2200 Protein: Using Current wt Protein g/k.0-1.2 Protein Calculated 75-90 Fluid: ml 2545-3793 ml (25-30 ml/kg Nutritional Problem 1. Problem Problem Inadequate energy intake Etiology r/t possible poor appetite/ sleepiness Signs/Symptoms: aeb noted low PO intake 10/07: 25-50-15% and nurse statement. Malnutrition Related to Morbid Obesity Malnutrition related to morbid obesity No Intervention/Recommendation Comments Recommend Ground, CCHO 60gm diet. Expected Outcomes/Goals Expected Outcomes/Goals 1.PO intake to meet 75% of estimated nutritional needs. 2.Monitor PO intake, wt, nutrition related labs, and skin integrity. 3.F/U as moderate risk in 3-5 days, 09/13-/.
== END 2019-10-12 17:00 | DRG 884 ==
LOC: GERO 23:35
PROVIDERS: ADMIT Psychiatry & Neurology Psychiatry; ATTEND Psychiatry & Neurology Psychiatry
DX: F03.91 Unspecified dementia, unspecified severity, with behavioral disturbance (principal); N18.9 Chronic kidney disease, unspecified; F20.0 Paranoid schizophrenia; N40.0 Benign prostatic hyperplasia without lower urinary tract symptoms; F31.9 Bipolar disorder, unspecified; I12.9 Hypertensive chronic kidney disease with stage 1 through stage 4 chronic kidney disease, or unspecified chronic kidney disease; E11.22 Type 2 diabetes mellitus with diabetic chronic kidney disease; Z79.899 Other long term (current) drug therapy
CPT/HCPCS: 82948-90; 83036-90; G0410; Z7610